=== PATIENT | female | born 1960 | race Two or more races ===

== ENCOUNTER 2016-12-17 13:11 | Inpatient (IN) | payer MEDICAID ==
[~2016-12-17] VITALS: Ht 167.6 cm; Wt 81.4 kg
[~2016-12-17 13:11] MED LIST: CARI-277; CLON0.1T PO; LORA-653 PO; NOR10T PO; OMEP20TA44 PO; ONDA4TAB5; OXCA600T3; SERT25TA84; TEMA15CA91 PO; [UNRECOGNIZED DRUG - CODE]
[2016-12-17] MEDS ORDERED: ONDANSETRON HCL 4 MG/2 ML VIAL IV ONE (13:45)
[2016-12-17] MEDS ORDERED: SODIUM CHLORIDE 0.9% 1,000 ML IV ONE (13:45)
[2016-12-17 14:18] LABS: Basophils # (auto) 0.1 uL; Eosinophils # (auto) 0.5 uL; Eosinophils % (auto) 7.5 % (0.0-7.0); Hematocrit 33.9 % (36.0-46.0); Hemoglobin 11.7 g/dL (12.2-16.2); Lymphocytes # (auto) 2.2 uL; Lymphocytes % (auto) 30.7 % (10.0-50.0); Mean Corpuscular Hemoglobin 32.8 pg (28.0-32.0); Mean Corpuscular Hgb Conc. 34.3 g/dL (32.0-36.0); Mean Corpuscular Volume 95.4 fL (80.0-100.0); Mean Platelet Volume 8.6 fL (7.4-10.4); Monocytes # (auto) 0.6 uL; Monocytes % (auto) 8.7 % (0.0-12.0); Neutrophils # (auto) 3.8 uL; Neutrophils % (auto) 52.1 % (37.0-80.0); Platelet Count (auto) 252 10^3/uL (140-450); Red Cell Distribution Width 14.7 % (11.6-16.0); White Blood Cell 7.3 10^3/uL (4.4-10.8)
[2016-12-17] MEDS ORDERED: ACETAMINOPHEN 500 MG TAB PO ONE (14:30)
[2016-12-17 14:32] LABS: INR 0.99 (0.9-1.15); Partial Thromboplastin Time 27.9 sec (22.64-33.71); Prothrombin Time 10.8 sec (9.37-12.3)
[2016-12-17 14:48] LABS: Albumin 3.6 g/dL (3.4-5.0); Alkaline Phosphatase 180 U/L (45-117); Anion Gap 9 (5-15); Aspartate Aminotransferase 13 U/L (15-37); BUN/Creatinine Ratio 23.7; Bilirubin, Total 0.2 mg/dL (0.2-1.0); Blood Urea Nitrogen 40 mg/dL (7-18); Calcium 7.9 mg/dL (8.5-10.1); Carbon Dioxide 22 mmol/L (21-32); Chloride 107 mmol/L (98-107); GFR African American 41 mL/min; GFR Non-African American 34 mL/min; Glucose 106 mg/dL (74-106); Magnesium 2.7 mg/dL (1.6-2.6); Sodium 138 mmol/L (136-145); Total Protein 6.5 g/dL (6.4-8.2)
[2016-12-17 15:21] LABS: Urine RBC None Seen /hpf (0 - 4)
[2016-12-17 15:27] LABS: Urine Bilirubin Negative (Negative); Urine Blood Negative /uL (Negative); Urine Color Yellow (Yellow); Urine Glucose Normal (Normal); Urine Hyaline Cast FEW /lpf (0 - 2); Urine Ketone Negative (Negative); Urine Nitrite Negative (Negative); Urine Squamous Epithelial Cell FEW /hpf (<5); Urine Urobilinogen Normal (Negative); Urine pH 5.5 (5.0-8.0)
[2016-12-17] MEDS: SODIUM CHLORIDE 0.9% 1,000 ML IV SCH (17:20)
[2016-12-17] MEDS ORDERED: PROMETHAZINE HCL 25 MG/ML 1ML IV PRN (17:30)
[2016-12-17] MEDS ORDERED: NITROGLYCERIN 0.4 MG SL TAB SL PRN (17:30)
[2016-12-17] MEDS ORDERED: LORazepam 2MG/ML-1ML VIAL IV PRN (17:30)
[2016-12-17] MEDS ORDERED: ACETAMINOPHEN 500 MG TAB PO PRN (17:30)
[2016-12-17] MEDS ORDERED: HYDROcodone-ACET 5/325MG TAB PO PRN (17:30)
[2016-12-17] MEDS ORDERED: TEMAZEPAM 15 MG CAP PO PRN (17:30)
[2016-12-17] MEDS: ENOXAPARIN SOD 40 MG/0.4 ML SYRINGE SC SCH (17:32)
[2016-12-17] MEDS ORDERED: ASPirin 81 mg TAB PO ONE (17:45)
[2016-12-17 17:47] LABS: Cholesterol 209 mg/dL (< 200); HDL Cholesterol 74 mg/dL (40-59); LDL Cholesterol 118 mg/dL (< 100); Triglycerides 254 mg/dL (< 150)
[2016-12-17] MEDS ORDERED: IPRATROPIUM BROM 0.5 MG/2.5ML INH SOL NEB ONE (18:00)
[2016-12-17] MEDS ORDERED: ALBUTEROL SULF 2.5 MG/0.5ML(0.5%) NEB SOLN NEB ONE (18:00)
[2016-12-17] MEDS ORDERED: DOCU100T15 PO (18:28)
[2016-12-17] MEDS ORDERED: QUET300T14 PO (18:28)
[2016-12-17] MEDS ORDERED: POTA10TA51 PO (18:28)
[2016-12-17] MEDS ORDERED: PHE100C PO (18:28)
[2016-12-17] MEDS ORDERED: DIPH50TA9 PO (18:28)
[2016-12-17] MEDS ORDERED: FURO40TA4 PO (18:28)
[2016-12-17] MEDS ORDERED: FAM20T PO (18:39)
[2016-12-17] MEDS ORDERED: TIZA4TAB9 PO (18:39)
[2016-12-17] MEDS ORDERED: PROP60CA8 PO (18:39)
[2016-12-17] MEDS ORDERED: LISI40TA PO (18:39)
[2016-12-17] MEDS ORDERED: LOR05T PO (18:39)
[2016-12-17] MEDS ORDERED: KEP500T PO (18:39)
[2016-12-17] MEDS ORDERED: HYDR-2652 PO (18:39)
[2016-12-17] MEDS ORDERED: GABA-339 PO (18:39)
[2016-12-17] MEDS ORDERED: HYDROcodone-ACET 10/325MG TAB PO SCH (19:15)
[2016-12-17] MEDS ORDERED: cloNIDine HCL 0.1 MG TAB PO PRN (19:15)
[2016-12-17] MEDS ORDERED: SERTRALINE HCL 50 MG TAB PO ONE (19:30)
[2016-12-17 20:30] VITALS: BP 114/70
[2016-12-17] MEDS: LEVETIRACETAM 500 MG TAB PO SCH (21:37)
[2016-12-17] MEDS: QUEtiapine FUMARATE 100 MG TAB PO SCH (21:37)
[2016-12-17] MEDS: GABAPENTIN 400 MG CAP PO SCH (21:38)
[2016-12-17] MEDS: ATORVASTATIN 20 MG TAB PO SCH (21:38)
[2016-12-17] MEDS: PHENYTOIN SODIUM 100 MG CAP PO SCH (21:38)
[2016-12-17] MEDS: HYDROcodone-ACET 10/325MG TAB PO PRN (21:39)
[2016-12-17] MEDS: Tizanidine Hydrochloride (Zanaflex) 4 MG PO SCH ×2 (21:40)
[2016-12-17 22:00] VITALS: BP 114/70
[2016-12-17] MEDS ORDERED: PATIENTS OWN MEDICATION (Gabapentin 1 TAB) PO SCH ×2 (22:00)
[2016-12-17] MEDS ORDERED: FAMOTIDINE 20 MG TAB PO SCH (22:00)
[2016-12-17] MEDS ORDERED: TIZANIDINE HYDROCHLORIDE PO SCH (22:00)
[2016-12-18] MEDS: MORPHINE SULF INJ 2 MG/ML SYRINGE 1ML IV PRN ×4 (03:19→22:57)
[2016-12-18 05:00] VITALS: BP 124/73
[2016-12-18] MEDS: Tizanidine Hydrochloride (Zanaflex) 4 MG PO SCH ×6 (06:00→21:46)
[2016-12-18 06:07] LABS: Potassium 4.6 mmol/L (3.5-5.1)
[2016-12-18 06:08] LABS: Albumin 3.1 g/dL (3.4-5.0); BUN/Creatinine Ratio 26.9; Bilirubin, Total 0.2 mg/dL (0.2-1.0); Calcium 7.8 mg/dL (8.5-10.1)
[2016-12-18] MEDS: GABAPENTIN 400 MG CAP PO SCH ×3 (06:11→21:45)
[2016-12-18] MEDS: SODIUM CHLORIDE 0.9% 1,000 ML IV SCH ×2 (06:30→18:20)
[2016-12-18] MEDS: HYDROcodone-ACET 10/325MG TAB PO PRN ×3 (06:37→19:48)
[2016-12-18 09:00] VITALS: BP 131/77
[2016-12-18] MEDS: LEVETIRACETAM 500 MG TAB PO SCH ×2 (09:18→21:46)
[2016-12-18] MEDS: ASPirin 81 mg TAB PO SCH (09:19)
[2016-12-18] MEDS: PHENYTOIN SODIUM 100 MG CAP PO SCH ×2 (09:19→21:45)
[2016-12-18] MEDS: SERTRALINE HCL 50 MG TAB PO SCH (09:19)
[2016-12-18] MEDS: FAMOTIDINE 20 MG TAB PO SCH (09:19)
[2016-12-18] MEDS: ENOXAPARIN SOD 40 MG/0.4 ML SYRINGE SC SCH (09:19)
[2016-12-18] MEDS: LACTULOSE 20Gm/30ML SOLN PO PRN ×2 (09:56→22:58)
[2016-12-18] MEDS ORDERED: OMEPRAZOLE 20 MG PO SCH (10:00)
[2016-12-18 13:33] LABS: Temperature: 24.1 C (20.0-25.0)
[2016-12-18 13:38] VITALS: BP 161/72
[2016-12-18] MEDS: LORazepam 0.5 MG TAB PO PRN (16:12)
[2016-12-18 17:05] VITALS: BP 155/85
[2016-12-18] MEDS ORDERED: PATIENTS OWN MEDICATION (Quetiapine Fumerate (Seroquel) 1 TAB) PO SCH (18:00)
[2016-12-18 20:00] VITALS: BP 137/75
[2016-12-18] MEDS: QUEtiapine FUMARATE 100 MG TAB PO SCH (21:46)
[2016-12-18] MEDS: ATORVASTATIN 20 MG TAB PO SCH (21:46)
[2016-12-18 22:00] VITALS: BP 137/75
[2016-12-19] VITALS (7 sets, daily range): BP systolic 117–160; BP diastolic 54–87
[2016-12-19] MEDS: MORPHINE SULF INJ 2 MG/ML SYRINGE 1ML IV PRN ×5 (04:00→23:35)
[2016-12-19] MEDS: Tizanidine Hydrochloride (Zanaflex) 4 MG PO SCH ×6 (05:54→21:02)
[2016-12-19] MEDS: GABAPENTIN 400 MG CAP PO SCH ×3 (05:54→20:15)
[2016-12-19] MEDS: HYDROcodone-ACET 10/325MG TAB PO PRN ×2 (06:05→20:16)
[2016-12-19] MEDS: SODIUM CHLORIDE 0.9% 1,000 ML IV SCH ×2 (06:50→19:20)
[2016-12-19] MEDS: FAMOTIDINE 20 MG TAB PO SCH (09:23)
[2016-12-19] MEDS: ASPirin 81 mg TAB PO SCH (09:24)
[2016-12-19] MEDS: SERTRALINE HCL 50 MG TAB PO SCH (09:24)
[2016-12-19] MEDS: LEVETIRACETAM 500 MG TAB PO SCH ×2 (09:24→20:16)
[2016-12-19] MEDS: PHENYTOIN SODIUM 100 MG CAP PO SCH ×2 (09:24→20:15)
[2016-12-19] MEDS: ENOXAPARIN SOD 40 MG/0.4 ML SYRINGE SC SCH (09:25)
[2016-12-19] MEDS: LORazepam 0.5 MG TAB PO PRN ×2 (13:37→23:35)
[2016-12-19] MEDS: QUEtiapine FUMARATE 100 MG TAB PO SCH (20:15)
[2016-12-19] MEDS: ATORVASTATIN 20 MG TAB PO SCH (20:17)
[2016-12-20 05:27] VITALS: BP 129/57
[2016-12-20] MEDS: GABAPENTIN 400 MG CAP PO SCH ×2 (05:39→14:00)
[2016-12-20] MEDS: Tizanidine Hydrochloride (Zanaflex) 4 MG PO SCH ×4 (05:39→13:37)
[2016-12-20] MEDS: MORPHINE SULF INJ 2 MG/ML SYRINGE 1ML IV PRN ×3 (05:40→16:18)
[2016-12-20] MEDS: SODIUM CHLORIDE 0.9% 1,000 ML IV SCH (07:44)
[2016-12-20 08:00] VITALS: BP 129/81
[2016-12-20 09:00] VITALS: BP 129/81
[2016-12-20] MEDS: ENOXAPARIN SOD 40 MG/0.4 ML SYRINGE SC SCH (09:24)
[2016-12-20] MEDS: ASPirin 81 mg TAB PO SCH (09:32)
[2016-12-20] MEDS: LEVETIRACETAM 500 MG TAB PO SCH (09:35)
[2016-12-20] MEDS: LORazepam 0.5 MG TAB PO PRN (09:36)
[2016-12-20] MEDS: FAMOTIDINE 20 MG TAB PO SCH (09:36)
[2016-12-20] MEDS: PHENYTOIN SODIUM 100 MG CAP PO SCH (09:36)
[2016-12-20] MEDS: SERTRALINE HCL 50 MG TAB PO SCH (09:36)
[2016-12-20] MEDS ORDERED: NITROGLYCERIN 0.4 MG SL TAB SL ONE (12:10)
[2016-12-20] MEDS ORDERED: METOPROLOL TARTRATE 1MG/1ML-5ML VIAL IV ONE (12:10)
[2016-12-20] MEDS ORDERED: IOHEXOL 350 MG/ML 100ML IJ ONE (12:52)
[2016-12-20 13:00] VITALS: BP 132/85
[2016-12-20 17:00] VITALS: BP 133/87
[2016-12-20 18:09] VITALS: BP 133/87
== END 2016-12-20 19:05 | disposition home or self-care (01) | DRG 812 ==
LOC: EDBD 13:11 → ER 13:11 → TELE 13:12 → TELE-WESTW 20:20
PROVIDERS: ADMIT Internal Medicine; ATTEND Internal Medicine Pulmonary Disease
DX: T42.6X1A Poisoning by other antiepileptic and sedative-hypnotic drugs, accidental (unintentional), initial encounter (principal); N17.9 Acute kidney failure, unspecified; N18.3 Chronic kidney disease, stage 3 (moderate); Y92.89 Other specified places as the place of occurrence of the external cause; I12.9 Hypertensive chronic kidney disease with stage 1 through stage 4 chronic kidney disease, or unspecified chronic kidney disease; I25.10 Atherosclerotic heart disease of native coronary artery without angina pectoris; Z86.73 Personal history of transient ischemic attack (TIA), and cerebral infarction without residual deficits; K21.9 Gastro-esophageal reflux disease without esophagitis; E03.9 Hypothyroidism, unspecified; E78.5 Hyperlipidemia, unspecified; F41.8 Other specified anxiety disorders; D50.9 Iron deficiency anemia, unspecified; F32.9 Major depressive disorder, single episode, unspecified; F41.9 Anxiety disorder, unspecified; G40.909 Epilepsy, unspecified, not intractable, without status epilepticus; G89.29 Other chronic pain; I25.2 Old myocardial infarction; M94.0 Chondrocostal junction syndrome [Tietze]; Z82.49 Family history of ischemic heart disease and other diseases of the circulatory system; Z83.3 Family history of diabetes mellitus; Z87.891 Personal history of nicotine dependence; Z90.49 Acquired absence of other specified parts of digestive tract; Z88.8 Allergy status to other drugs, medicaments and biological substances
CPT/HCPCS: 36415; 70450; 71010; 75574; 80053; 80061; 80185; 80307; 81001; 82550; 82607; 82746; 82962; 83735; 84443; 84484; 85025; 85610; 85652; 85730; 93005; 93306; 93886; 94640; 94761; 96361; 96374; J2405

== ENCOUNTER 2017-03-27 13:40 | Emergency (ER) | payer MEDICAID ==
[~2017-03-27] VITALS: Ht 177.8 cm; Wt 68.0 kg
[~2017-03-27 13:40] MED LIST changes: +DIPH50TA9 PO; +DOCU100T15 PO; +FAM20T PO; +FURO40TA4 PO; +GABA-339 PO; +HYDR-2652 PO; +KEP500T PO; +LISI40TA PO; +LOR05T PO; +PHE100C PO; +POTA10TA51 PO; +QUET300T14 PO; +TIZA4TAB9 PO
[2017-03-27] MEDS ORDERED: SODIUM CHLORIDE 0.9% 1,000 ML IV ONE (13:54)
[2017-03-27] MEDS ORDERED: LORazepam 2MG/ML-1ML VIAL IV ONE (14:00)
[2017-03-27 14:20] VITALS: BP 126/73
[2017-03-27 14:28] LABS: Basophils # (auto) 0.1 uL; CONDITION Y; Eosinophils # (auto) 0.4 uL; Eosinophils % (auto) 4.6 % (0.0-7.0); Hematocrit 38.4 % (36.0-46.0); Lymphocytes % (auto) 25.2 % (10.0-50.0); Mean Corpuscular Hemoglobin 32.7 pg (28.0-32.0); Mean Corpuscular Hgb Conc. 33.9 g/dL (32.0-36.0); Mean Corpuscular Volume 96.4 fL (80.0-100.0); Mean Platelet Volume 8.3 fL (7.4-10.4); Monocytes # (auto) 0.5 uL; Monocytes % (auto) 6.1 % (0.0-12.0); Neutrophils # (auto) 4.9 uL; Neutrophils % (auto) 63.1 % (37.0-80.0); Platelet Count (auto) 294 10^3/uL (140-450); Red Cell Distribution Width 14.4 % (11.6-16.0); White Blood Cell 7.8 10^3/uL (4.4-10.8)
[2017-03-27 14:50] LABS: Albumin 3.8 g/dL (3.4-5.0); Anion Gap 7 (5-15); Aspartate Aminotransferase 9 U/L (15-37); BUN/Creatinine Ratio 15.8; Blood Urea Nitrogen 12 mg/dL (7-18); Calcium 8.8 mg/dL (8.5-10.1); Carbon Dioxide 23 mmol/L (21-32); Chloride 109 mmol/L (98-107); GFR African American 102 mL/min; GFR Non-African American 84 mL/min; Glucose 87 mg/dL (74-106); Potassium 4.1 mmol/L (3.5-5.1); Sodium 139 mmol/L (136-145)
[2017-03-27 14:53] LABS: Alkaline Phosphatase 169 U/L (45-117); Bilirubin, Total 0.3 mg/dL (0.2-1.0)
[2017-03-27 15:09] LABS: Urine Bilirubin Negative (Negative); Urine Blood Negative /uL (Negative); Urine Color Colorless (Yellow); Urine Glucose Normal (Normal); Urine Ketone Negative (Negative); Urine Nitrite Negative (Negative); Urine RBC <1 /hpf (0 - 4); Urine Squamous Epithelial Cell FEW /hpf (<5); Urine Urobilinogen Normal (Negative)
== END 2017-03-27 16:53 | disposition home or self-care (01) ==
LOC: ER 13:40 → EDBD 13:40 → ER 16:53
DX: F41.1 Generalized anxiety disorder (principal); K21.9 Gastro-esophageal reflux disease without esophagitis; M25.511 Pain in right shoulder; I25.10 Atherosclerotic heart disease of native coronary artery without angina pectoris; I10 Essential (primary) hypertension; F32.9 Major depressive disorder, single episode, unspecified; R56.9 Unspecified convulsions; E78.5 Hyperlipidemia, unspecified; F17.210 Nicotine dependence, cigarettes, uncomplicated; Z88.6 Allergy status to analgesic agent
CPT/HCPCS: 36415; 72040; 73030; 80053; 81001; 84484; 85025; 93005; 96361; 96374; 99285; J2060; J7030

== ENCOUNTER 2017-04-12 18:47 | Observation (INO) | payer MEDICAID ==
[~2017-04-12] VITALS: Ht 167.6 cm; Wt 69.9 kg
[~2017-04-12 18:47] MED LIST changes: -HYDR-2652 PO; +HYDR50TA15 PO; -LOR05T PO; +LORA-654 PO
[2017-04-12 20:02] LABS: Acetaminophen < 2.0 ug/mL (10-30); Salicylate 4.2 mg/dL (2.8-20.0)
[2017-04-12] MEDS ORDERED: HYDROcodone-ACET 10/325MG TAB PO ONE (22:45)
[2017-04-13 05:31] VITALS: BP 116/76
[2017-04-13] MEDS ORDERED: HYDROcodone-ACET 5/325MG TAB PO ONE (05:45)
== END 2017-04-13 06:07 | disposition home or self-care (01) | DRG 776 ==
LOC: EDBD 18:47 → ER 18:57 → OVERFLOW 20:52 → ER 04-13 06:07
PROVIDERS: ADMIT Emergency Medicine; ATTEND Emergency Medicine
DX: F12.10 Cannabis abuse, uncomplicated (principal); F31.9 Bipolar disorder, unspecified; I10 Essential (primary) hypertension; F17.210 Nicotine dependence, cigarettes, uncomplicated; Z86.73 Personal history of transient ischemic attack (TIA), and cerebral infarction without residual deficits; K21.9 Gastro-esophageal reflux disease without esophagitis; I25.10 Atherosclerotic heart disease of native coronary artery without angina pectoris; F41.9 Anxiety disorder, unspecified
CPT/HCPCS: 36415; 80307; 80320; 80329; 99285; G0378

== ENCOUNTER → 2017-06-25 | Outpatient (CLI) | payer MEDICAID ==
[~2017-06-25] VITALS: Ht 167.6 cm; Wt 68.0 kg
[~2017-06-25] MED LIST changes: +ADENOSINE 57 MG in GIVE UN-DILUTED 0 ML IV ONE; +ADENOSINE 90 MG/30 ML INJ IV ONE
[2017-06-25 12:20] VITALS: BP 128/81
[2017-06-25 13:20] VITALS: BP 128/81
== END | disposition home or self-care (01) ==
LOC: Rad HDHVI 09:26
PROVIDERS: ATTEND Internal Medicine Cardiovascular Disease
DX: I10 Essential (primary) hypertension (principal); I20.9 Angina pectoris, unspecified; G40.89 Other seizures; I62.9 Nontraumatic intracranial hemorrhage, unspecified; F43.9 Reaction to severe stress, unspecified; F41.9 Anxiety disorder, unspecified; Z87.828 Personal history of other (healed) physical injury and trauma
CPT/HCPCS: 36415; 78452; 80185; 93005; 93306; 96374; 96375; A9500; G0463; J0153

== ENCOUNTER 2018-02-26 11:58 | Emergency (ER) | payer MEDICAID ==
[~2018-02-26] VITALS: Ht 167.6 cm; Wt 72.6 kg
[~2018-02-26 11:58] MED LIST changes: -ADENOSINE 57 MG in GIVE UN-DILUTED 0 ML IV ONE; -ADENOSINE 90 MG/30 ML INJ IV ONE
[2018-02-26] MEDS ORDERED: SODIUM CHLORIDE 0.9% 1,000 ML IV ONE (12:33)
[2018-02-26] MEDS ORDERED: MECLIZINE HCL 25 MG TAB PO ONE (12:45)
[2018-02-26 13:02] LABS: Urine Bacteria NONE SEEN /hpf (None Seen); Urine Blood Negative /uL (Negative); Urine Mucus FEW (None Seen); Urine Specific Gravity 1.015 (1.001-1.035); Urine WBC 1 /hpf (0 - 5)
[2018-02-26 13:15] LABS: Basophils # (auto) 0.1 uL; Basophils % (auto) 0.7 % (0.0-2.0); Eosinophils # (auto) 0.5 uL; Eosinophils % (auto) 6.2 % (0.0-7.0); Hematocrit 39.8 % (36.0-46.0); Hemoglobin 13.7 g/dL (12.2-16.2); Lymphocytes # (auto) 2.4 uL; Lymphocytes % (auto) 31.6 % (10.0-50.0); Mean Corpuscular Hemoglobin 32.9 pg (28.0-32.0); Mean Corpuscular Hgb Conc. 34.6 g/dL (32.0-36.0); Mean Corpuscular Volume 95.2 fL (80.0-100.0); Monocytes # (auto) 0.6 uL; Monocytes % (auto) 8.2 % (0.0-12.0); Neutrophils % (auto) 53.3 % (37.0-80.0); Platelet Count (auto) 286 10^3/uL (140-450); Red Blood Cells 4.18 10^6/uL (4.0-5.20); Red Cell Distribution Width 13.4 % (11.8-14.3); White Blood Cell 7.6 10^3/uL (4.4-10.8)
[2018-02-26 13:31] LABS: Albumin 4.2 g/dL (3.4-5.0); BUN/Creatinine Ratio 15.2; Calcium 8.7 mg/dL (8.5-10.1)
[2018-02-26 13:35] LABS: Bilirubin, Total 0.3 mg/dL (0.2-1.0); Total Protein 7.3 g/dL (6.4-8.2)
[2018-02-26] MEDS ORDERED: KETOROLAC TROMETH 30 MG/ML 1ML VIAL IV ONE (14:00)
[2018-02-26 15:18] VITALS: BP 114/66
== END 2018-02-26 15:38 | disposition home or self-care (01) ==
LOC: ER 11:58
DX: N39.0 Urinary tract infection, site not specified (principal); R42 Dizziness and giddiness; K21.9 Gastro-esophageal reflux disease without esophagitis; E78.5 Hyperlipidemia, unspecified; I10 Essential (primary) hypertension; I25.10 Atherosclerotic heart disease of native coronary artery without angina pectoris; E07.9 Disorder of thyroid, unspecified; F17.210 Nicotine dependence, cigarettes, uncomplicated; Z88.8 Allergy status to other drugs, medicaments and biological substances; Z90.49 Acquired absence of other specified parts of digestive tract; Z79.899 Other long term (current) drug therapy
CPT/HCPCS: 36415; 70450; 74176; 80053; 81001; 84484; 85025; 93005; 96361; 96374; 99285; J1885; J7030; J8597

== ENCOUNTER 2018-04-05 16:42 | Inpatient (IN) | payer MEDICAID ==
[~2018-04-05] VITALS: Ht 167.6 cm; Wt 66.7 kg
[2018-04-05 17:34] LABS: Basophils # (auto) 0.1 uL; Basophils % (auto) 0.7 % (0.0-2.0); Eosinophils # (auto) 0.6 uL; Eosinophils % (auto) 5.2 % (0.0-7.0); Hematocrit 36.1 % (36.0-46.0); Hemoglobin 12.4 g/dL (12.2-16.2); Lymphocytes # (auto) 1.2 uL; Lymphocytes % (auto) 11.6 % (10.0-50.0); Mean Corpuscular Hemoglobin 33.1 pg (28.0-32.0); Mean Corpuscular Hgb Conc. 34.4 g/dL (32.0-36.0); Mean Corpuscular Volume 96.1 fL (80.0-100.0); Monocytes # (auto) 0.5 uL; Monocytes % (auto) 4.6 % (0.0-12.0); Neutrophils # (auto) 8.2 uL; Neutrophils % (auto) 77.9 % (37.0-80.0); Platelet Count (auto) 305 10^3/uL (140-450); Red Blood Cells 3.76 10^6/uL (4.0-5.20); Red Cell Distribution Width 14.1 % (11.8-14.3); White Blood Cell 10.5 10^3/uL (4.4-10.8)
[2018-04-05 17:46] LABS: Alanine Aminotransferase 37 U/L (13-56); Albumin 3.9 g/dL (3.4-5.0); Alkaline Phosphatase 183 U/L (45-117); Amylase 69 U/L (25-115); Anion Gap 6 (5-15); Aspartate Aminotransferase 12 U/L (15-37); BUN/Creatinine Ratio 19.4; Bilirubin, Total 0.2 mg/dL (0.2-1.0); Blood Urea Nitrogen 27 mg/dL (7-18); Calcium 8.2 mg/dL (8.5-10.1); Carbon Dioxide 22 mmol/L (21-32); Chloride 109 mmol/L (98-107); GFR African American 51 mL/min; GFR Non-African American 42 mL/min; Glucose 100 mg/dL (74-106); Lipase 85 U/L (73-393); Magnesium 2.6 mg/dL (1.6-2.6); Potassium 4.6 mmol/L (3.5-5.1); Sodium 137 mmol/L (136-145); Total Protein 7.2 g/dL (6.4-8.2)
[2018-04-05 19:43] LABS: Urine Bacteria NONE SEEN /hpf (None Seen); Urine Blood Negative /uL (Negative); Urine Mucus FEW (None Seen); Urine Specific Gravity 1.013 (1.001-1.035); Urine WBC 2 /hpf (0 - 5)
[2018-04-05 19:52] LABS: Alcohol, Urine < 3.0 mg/dL (0-5); Amphetamine Screen, Urine NEGATIVE (NEGATIVE); Barbiturate Scree,Urine NEGATIVE (NEGATIVE); Benzodiazephine Screen, Urine NEGATIVE (NEGATIVE); Cannabinoid Screen, Urine NEGATIVE (NEGATIVE); Cocaine Screen, Urine NEGATIVE (NEGATIVE); Opiate Scree,Urine NEGATIVE (NEGATIVE); Phencyclidine Screen, Urine NEGATIVE (NEGATIVE)
[2018-04-05] MEDS ORDERED: PANTOPRAZOLE 40 MG/10 ML VIAL IV ONE (21:45)
[2018-04-05] MEDS ORDERED: MORPHINE SULF INJ 2 MG/ML SYRINGE 1ML IV ONE (21:45)
[2018-04-05] MEDS ORDERED: ONDANSETRON HCL 4 MG/2 ML VIAL IV ONE (21:45)
[2018-04-05] MEDS ORDERED: SODIUM CHLORIDE 0.9% 500 ML IV ONE (22:30)
[2018-04-05] MEDS: SODIUM CHLORIDE 0.9% 1,000 ML IV SCH (22:30)
[2018-04-06] MEDS: hydrALAZINE HCL 25 MG TAB PO SCH ×3 (01:06→21:50)
[2018-04-06] MEDS: ONDANSETRON HCL 4 MG/2 ML VIAL IV PRN ×3 (01:06→16:44)
[2018-04-06] MEDS: TEMAZEPAM 15 MG CAP PO PRN ×2 (01:06→21:56)
[2018-04-06] MEDS: HYDROcodone-ACET 5/325MG TAB PO PRN ×3 (01:07→09:22)
[2018-04-06] MEDS: DOCUSATE SOD 100 MG CAP PO PRN (01:07)
[2018-04-06] MEDS: PHENYTOIN SODIUM 100 MG CAP PO SCH ×3 (01:08→21:50)
[2018-04-06] MEDS: ACETAMINOPHEN 325 MG TAB PO PRN (01:08)
[2018-04-06] MEDS: SODIUM CHLORIDE 0.9% 1,000 ML IV SCH (04:49)
[2018-04-06 05:00] VITALS: BP 119/63
[2018-04-06 05:57] LABS: Basophils # (auto) 0 uL; Basophils % (auto) 0.7 % (0.0-2.0); Eosinophils # (auto) 0.3 uL; Eosinophils % (auto) 5.1 % (0.0-7.0); Hematocrit 36.4 % (36.0-46.0); Hemoglobin 11.9 g/dL (12.2-16.2); Lymphocytes # (auto) 1.8 uL; Lymphocytes % (auto) 28.5 % (10.0-50.0); Mean Corpuscular Hemoglobin 32.5 pg (28.0-32.0); Mean Corpuscular Hgb Conc. 32.8 g/dL (32.0-36.0); Mean Corpuscular Volume 99.1 fL (80.0-100.0); Monocytes # (auto) 0.5 uL; Neutrophils # (auto) 3.7 uL; Neutrophils % (auto) 57.7 % (37.0-80.0); Platelet Count (auto) 281 10^3/uL (140-450); Red Blood Cells 3.67 10^6/uL (4.0-5.20); Red Cell Distribution Width 14.9 % (11.8-14.3); White Blood Cell 6.4 10^3/uL (4.4-10.8)
[2018-04-06] MEDS: MORPHINE SULF INJ 2 MG/ML SYRINGE 1ML IV PRN ×3 (06:16→20:14)
[2018-04-06 06:32] LABS: Albumin 3.4 g/dL (3.4-5.0); BUN/Creatinine Ratio 19.6; Bilirubin, Total 0.3 mg/dL (0.2-1.0); Calcium 7.9 mg/dL (8.5-10.1); Potassium 4.3 mmol/L (3.5-5.1); Total Protein 6.3 g/dL (6.4-8.2)
[2018-04-06 08:51] VITALS: BP 97/75
[2018-04-06] MEDS ORDERED: cefTRIAXone 1GM/10ml IVPUSH 10 ML IV SCH (09:00)
[2018-04-06] MEDS: SERTRALINE HCL 50 MG TAB PO SCH (09:19)
[2018-04-06] MEDS: LEVETIRACETAM 500 MG TAB PO SCH ×2 (09:19→21:50)
[2018-04-06] MEDS: lamoTRIgine 100 MG TAB PO SCH ×2 (09:20→21:50)
[2018-04-06] MEDS: LISINOPRIL 20 MG TAB PO SCH (09:23)
[2018-04-06] MEDS: FUROSEMIDE 40 MG TAB PO SCH (09:23)
[2018-04-06] MEDS ORDERED: PANTOPRAZOLE 40 MG/10 ML VIAL IV SCH (10:00)
[2018-04-06 10:39] LABS: Albumin 3.3 g/dL (3.4-5.0); BUN/Creatinine Ratio 18.3; Bilirubin, Total 0.4 mg/dL (0.2-1.0); Calcium 7.9 mg/dL (8.5-10.1); Potassium 4.6 mmol/L (3.5-5.1); Total Protein 6.5 g/dL (6.4-8.2)
[2018-04-06 12:30] VITALS: BP 130/74
[2018-04-06 16:28] VITALS: BP 134/70
[2018-04-06] MEDS: LACTULOSE 20Gm/30ML SOLN PO PRN (16:48)
[2018-04-06] MEDS: LORazepam 0.5 MG TAB PO PRN (17:42)
[2018-04-06] MEDS: PANTOPRAZOLE 40 MG TAB PO SCH (21:50)
[2018-04-06 22:12] VITALS: BP 125/73
[2018-04-07] MEDS: SODIUM CHLORIDE 0.9% 1,000 ML IV SCH ×2 (01:10→10:01)
[2018-04-07] MEDS: MORPHINE SULF INJ 2 MG/ML SYRINGE 1ML IV PRN ×6 (01:28→22:11)
[2018-04-07] MEDS: ONDANSETRON HCL 4 MG/2 ML VIAL IV PRN ×2 (04:59→19:40)
[2018-04-07 05:09] VITALS: BP 115/66
[2018-04-07 05:24] LABS: Basophils # (auto) 0.1 uL; Eosinophils # (auto) 0.4 uL; Eosinophils % (auto) 8.3 % (0.0-7.0); Hematocrit 36.9 % (36.0-46.0); Hemoglobin 12.4 g/dL (12.2-16.2); Lymphocytes # (auto) 1.5 uL; Lymphocytes % (auto) 27.1 % (10.0-50.0); Mean Corpuscular Hemoglobin 32.2 pg (28.0-32.0); Mean Corpuscular Hgb Conc. 33.7 g/dL (32.0-36.0); Mean Corpuscular Volume 95.8 fL (80.0-100.0); Monocytes # (auto) 0.4 uL; Monocytes % (auto) 8.2 % (0.0-12.0); Neutrophils % (auto) 55.4 % (37.0-80.0); Nucleated Red Blood Cells % 0.1 %; Platelet Count (auto) 286 10^3/uL (140-450); Red Blood Cells 3.85 10^6/uL (4.0-5.20); Red Cell Distribution Width 14.1 % (11.8-14.3); White Blood Cell 5.4 10^3/uL (4.4-10.8)
[2018-04-07] MEDS: PHENYTOIN SODIUM 100 MG CAP PO SCH (05:33)
[2018-04-07 05:36] LABS: Albumin 3.4 g/dL (3.4-5.0); BUN/Creatinine Ratio 12.9; Bilirubin, Total 0.7 mg/dL (0.2-1.0); Calcium 8.4 mg/dL (8.5-10.1); Total Protein 6.6 g/dL (6.4-8.2)
[2018-04-07] MEDS: hydrALAZINE HCL 25 MG TAB PO SCH ×3 (05:40→22:08)
[2018-04-07 06:08] LABS: % Iron Saturation 57.7 % (15-50)
[2018-04-07] MEDS: HYDROcodone-ACET 5/325MG TAB PO PRN (06:34)
[2018-04-07] MEDS: DOCUSATE SOD 100 MG CAP PO PRN (07:59)
[2018-04-07] MEDS: LACTULOSE 20Gm/30ML SOLN PO PRN (07:59)
[2018-04-07 09:03] VITALS: BP 118/78
[2018-04-07] MEDS: lamoTRIgine 100 MG TAB PO SCH ×2 (09:29→22:09)
[2018-04-07] MEDS: LEVETIRACETAM 500 MG TAB PO SCH ×2 (09:29→22:09)
[2018-04-07] MEDS: SERTRALINE HCL 50 MG TAB PO SCH (09:29)
[2018-04-07] MEDS: PANTOPRAZOLE 40 MG TAB PO SCH ×2 (09:29→22:10)
[2018-04-07] MEDS: FUROSEMIDE 40 MG TAB PO SCH (09:30)
[2018-04-07] MEDS: LISINOPRIL 20 MG TAB PO SCH (09:30)
[2018-04-07] MEDS ORDERED: FAM20T PO (09:38)
[2018-04-07] MEDS ORDERED: LORA2TAB10 PO (09:39)
[2018-04-07] MEDS: ACETAMINOPHEN 325 MG TAB PO PRN (11:03)
[2018-04-07] MEDS: LORazepam 0.5 MG TAB PO PRN (11:03)
[2018-04-07 12:56] VITALS: BP 128/73
[2018-04-07 14:04] LABS: INR 0.93 (0.9-1.15)
[2018-04-07 16:45] VITALS: BP 117/50
[2018-04-07 22:00] VITALS: BP 127/81
[2018-04-07] MEDS: QUEtiapine FUMARATE 100 MG TAB PO SCH (22:10)
[2018-04-08] MEDS: TEMAZEPAM 15 MG CAP PO PRN ×2 (00:07→21:46)
[2018-04-08] MEDS: ONDANSETRON HCL 4 MG/2 ML VIAL IV PRN ×4 (00:07→17:54)
[2018-04-08] MEDS: SODIUM CHLORIDE 0.9% 1,000 ML IV SCH ×2 (00:45→16:18)
[2018-04-08] MEDS: MORPHINE SULF INJ 2 MG/ML SYRINGE 1ML IV PRN ×5 (02:58→20:08)
[2018-04-08 04:53] VITALS: BP 110/70
[2018-04-08] MEDS: hydrALAZINE HCL 25 MG TAB PO SCH ×3 (05:42→21:41)
[2018-04-08 06:45] LABS: Albumin 3.8 g/dL (3.4-5.0); Bilirubin, Direct 0.3 mg/dL (0-0.2); Bilirubin, Total 0.8 mg/dL (0.2-1.0); Total Protein 6.8 g/dL (6.4-8.2)
[2018-04-08] MEDS: ACETAMINOPHEN 325 MG TAB PO PRN ×2 (06:54→18:30)
[2018-04-08 08:00] VITALS: BP 117/58
[2018-04-08] MEDS: lamoTRIgine 100 MG TAB PO SCH ×2 (09:18→21:40)
[2018-04-08] MEDS: LORazepam 0.5 MG TAB PO PRN ×2 (09:20→15:28)
[2018-04-08] MEDS: SERTRALINE HCL 50 MG TAB PO SCH (09:21)
[2018-04-08] MEDS: LEVETIRACETAM 500 MG TAB PO SCH ×2 (09:22→21:40)
[2018-04-08] MEDS: PANTOPRAZOLE 40 MG TAB PO SCH ×2 (09:22→21:48)
[2018-04-08] MEDS: LISINOPRIL 20 MG TAB PO SCH (09:22)
[2018-04-08] MEDS: FUROSEMIDE 40 MG TAB PO SCH (09:28)
[2018-04-08 12:52] LABS: Hepatitis A Ab IgM Negative; Hepatitis B Core IgM Negative; Hepatitis B Surface Antigen Negative (Negative)
[2018-04-08 12:53] LABS: Hepatitis C Antibody Negative (Negative)
[2018-04-08 13:45] VITALS: BP 109/57
[2018-04-08 17:00] VITALS: BP 111/57
[2018-04-08] MEDS: QUEtiapine FUMARATE 100 MG TAB PO SCH (21:41)
[2018-04-08 22:00] VITALS: BP 122/82
[2018-04-09] MEDS: MORPHINE SULF INJ 2 MG/ML SYRINGE 1ML IV PRN ×5 (01:44→21:26)
[2018-04-09] MEDS: ONDANSETRON HCL 4 MG/2 ML VIAL IV PRN ×4 (01:49→21:26)
[2018-04-09] MEDS: LORazepam 0.5 MG TAB PO PRN ×3 (03:45→23:29)
[2018-04-09] MEDS: SODIUM CHLORIDE 0.9% 1,000 ML IV SCH ×2 (04:55→21:06)
[2018-04-09 05:36] VITALS: BP_SYST 121; BP_SYST 150; BP_DIAS 77; BP_DIAS 80
[2018-04-09] MEDS: hydrALAZINE HCL 25 MG TAB PO SCH ×3 (06:42→21:25)
[2018-04-09 08:00] VITALS: BP 120/71
[2018-04-09 08:45] LABS: Albumin 3.5 g/dL (3.4-5.0); Bilirubin, Direct 0.2 mg/dL (0-0.2); Bilirubin, Total 0.6 mg/dL (0.2-1.0); Total Protein 6.6 g/dL (6.4-8.2)
[2018-04-09] MEDS: ACETAMINOPHEN 325 MG TAB PO PRN (08:47)
[2018-04-09] MEDS: FUROSEMIDE 40 MG TAB PO SCH (10:15)
[2018-04-09] MEDS: lamoTRIgine 100 MG TAB PO SCH ×2 (10:15→21:07)
[2018-04-09] MEDS: LEVETIRACETAM 500 MG TAB PO SCH ×2 (10:15→21:06)
[2018-04-09] MEDS: LISINOPRIL 20 MG TAB PO SCH (10:17)
[2018-04-09] MEDS: PANTOPRAZOLE 40 MG TAB PO SCH (10:17)
[2018-04-09] MEDS: SERTRALINE HCL 50 MG TAB PO SCH (10:17)
[2018-04-09] MEDS ORDERED: LORATADINE 10 MG TAB PO ONE (11:15)
[2018-04-09] MEDS: HYDROcodone-ACET 5/325MG TAB PO PRN (11:31)
[2018-04-09] MEDS ORDERED: KETO0.025 EACHEYE (12:14)
[2018-04-09] MEDS ORDERED: FLUT1SPR21 (12:14)
[2018-04-09] MEDS ORDERED: LORA-154 PO (12:14)
[2018-04-09 12:39] VITALS: BP 145/74
[2018-04-09 16:27] VITALS: BP 113/78
[2018-04-09] MEDS: QUEtiapine FUMARATE 100 MG TAB PO SCH (21:07)
[2018-04-09] MEDS: FAMOTIDINE 20 MG TAB PO SCH (21:07)
[2018-04-09] MEDS: KETOTIFEN EACHEYE SCH (21:25)
[2018-04-09] MEDS: FLUTICASONE PROP NASAL SPR 0.05 % (50MCG) 16GM EACHNOSTRI SCH (21:25)
[2018-04-09 22:00] VITALS: BP 122/91
[2018-04-09] MEDS ORDERED: PATIENTS OWN MEDICATION PO SCH (22:00)
[2018-04-10] MEDS: LACTULOSE 20Gm/30ML SOLN PO PRN (01:51)
[2018-04-10] MEDS: TEMAZEPAM 15 MG CAP PO PRN (01:51)
[2018-04-10 05:00] VITALS: BP 114/66
[2018-04-10] MEDS: hydrALAZINE HCL 25 MG TAB PO SCH ×3 (05:40→20:20)
[2018-04-10] MEDS: HYDROcodone-ACET 5/325MG TAB PO PRN ×3 (06:14→15:52)
[2018-04-10 07:28] LABS: Albumin 3.5 g/dL (3.4-5.0); BUN/Creatinine Ratio 11.1; Bilirubin, Total 0.5 mg/dL (0.2-1.0); Calcium 8.7 mg/dL (8.5-10.1); Potassium 3.3 mmol/L (3.5-5.1); Total Protein 6.7 g/dL (6.4-8.2)
[2018-04-10] MEDS: LORazepam 0.5 MG TAB PO PRN ×2 (08:33→15:01)
[2018-04-10 08:34] VITALS: BP 117/76
[2018-04-10] MEDS: FLUTICASONE PROP NASAL SPR 0.05 % (50MCG) 16GM EACHNOSTRI SCH ×2 (10:25→20:20)
[2018-04-10] MEDS: KETOTIFEN EACHEYE SCH ×2 (10:25→23:19)
[2018-04-10] MEDS: LORATADINE 10 MG TAB PO SCH (10:26)
[2018-04-10] MEDS: FAMOTIDINE 20 MG TAB PO SCH ×2 (10:26→20:19)
[2018-04-10] MEDS: LISINOPRIL 20 MG TAB PO SCH (10:26)
[2018-04-10] MEDS: SERTRALINE HCL 50 MG TAB PO SCH (10:26)
[2018-04-10] MEDS: lamoTRIgine 100 MG TAB PO SCH ×2 (10:26→20:19)
[2018-04-10] MEDS: LEVETIRACETAM 500 MG TAB PO SCH ×2 (10:26→20:19)
[2018-04-10] MEDS: FUROSEMIDE 40 MG TAB PO SCH (10:27)
[2018-04-10] MEDS ORDERED: POTASSIUM CHL 20 Meq TABLET PO ONE (11:00)
[2018-04-10] MEDS: SODIUM CHLORIDE 0.9% 1,000 ML IV SCH (12:06)
[2018-04-10 13:00] VITALS: BP 111/74
[2018-04-10 17:00] VITALS: BP 120/79
[2018-04-10] MEDS: QUEtiapine FUMARATE 100 MG TAB PO SCH (20:19)
[2018-04-10] MEDS: MORPHINE SULF INJ 2 MG/ML SYRINGE 1ML IV PRN (20:31)
[2018-04-10 22:00] VITALS: BP 129/80
[2018-04-10] MEDS: ACETAMINOPHEN 325 MG TAB PO PRN (23:21)
[2018-04-11] MEDS: LORazepam 0.5 MG TAB PO PRN ×3 (03:48→20:06)
[2018-04-11 04:41] VITALS: BP 137/91
[2018-04-11] MEDS: MORPHINE SULF INJ 2 MG/ML SYRINGE 1ML IV PRN ×3 (04:55→20:06)
[2018-04-11] MEDS: hydrALAZINE HCL 25 MG TAB PO SCH ×3 (05:46→22:34)
[2018-04-11] MEDS: SODIUM CHLORIDE 0.9% 1,000 ML IV SCH (06:20)
[2018-04-11 08:04] LABS: Albumin 3.5 g/dL (3.4-5.0); Bilirubin, Direct 0.1 mg/dL (0-0.2); Bilirubin, Total 0.4 mg/dL (0.2-1.0); Potassium 3.7 mmol/L (3.5-5.1); Total Protein 6.5 g/dL (6.4-8.2)
[2018-04-11 09:00] VITALS: BP 125/76
[2018-04-11] MEDS: KETOTIFEN EACHEYE SCH ×2 (09:26→22:34)
[2018-04-11] MEDS: SERTRALINE HCL 50 MG TAB PO SCH (09:27)
[2018-04-11] MEDS: lamoTRIgine 100 MG TAB PO SCH ×2 (09:27→22:32)
[2018-04-11] MEDS: LORATADINE 10 MG TAB PO SCH (09:29)
[2018-04-11] MEDS: FUROSEMIDE 40 MG TAB PO SCH (09:29)
[2018-04-11] MEDS: LISINOPRIL 20 MG TAB PO SCH (09:29)
[2018-04-11] MEDS: LEVETIRACETAM 500 MG TAB PO SCH ×2 (09:29→22:34)
[2018-04-11] MEDS: FLUTICASONE PROP NASAL SPR 0.05 % (50MCG) 16GM EACHNOSTRI SCH ×2 (09:30→22:34)
[2018-04-11] MEDS: FAMOTIDINE 20 MG TAB PO SCH ×2 (09:30→22:33)
[2018-04-11 10:30] LABS: Basophils # (auto) 0.1 uL; Basophils % (auto) 1.6 % (0.0-2.0); Eosinophils # (auto) 0.7 uL; Eosinophils % (auto) 10.7 % (0.0-7.0); Hematocrit 40.7 % (36.0-46.0); Hemoglobin 13.3 g/dL (12.2-16.2); Lymphocytes # (auto) 1.8 uL; Lymphocytes % (auto) 27.8 % (10.0-50.0); Mean Corpuscular Hemoglobin 31.9 pg (28.0-32.0); Mean Corpuscular Hgb Conc. 32.7 g/dL (32.0-36.0); Mean Corpuscular Volume 97.6 fL (80.0-100.0); Monocytes # (auto) 0.5 uL; Monocytes % (auto) 8.4 % (0.0-12.0); Neutrophils # (auto) 3.3 uL; Neutrophils % (auto) 51.5 % (37.0-80.0); Nucleated Red Blood Cells % 0.1 %; Platelet Count (auto) 241 10^3/uL (140-450); Red Blood Cells 4.17 10^6/uL (4.0-5.20); White Blood Cell 6.5 10^3/uL (4.4-10.8)
[2018-04-11 10:50] LABS: INR 0.94 (0.9-1.15); Partial Thromboplastin Time 26.6 sec (23.78-33.04); Prothrombin Time 10.1 sec (9.27-12.13)
[2018-04-11] MEDS ORDERED: IOHEXOL 300 MG/ML 100ML BOTTLE IJ ONE (12:57)
[2018-04-11 13:00] VITALS: BP 115/81
[2018-04-11] MEDS ORDERED: MORPHINE SULFATE 4 MG/ML SYR/VIAL IV PRN (16:00)
[2018-04-11] MEDS ORDERED: LABETALOL HCL 5 MG/ML 4ML SYRINGE IV PRN (16:00)
[2018-04-11] MEDS ORDERED: MORPHINE SULFATE 4 MG/ML SYR/VIAL IV ONE (16:00)
[2018-04-11] MEDS ORDERED: KETOROLAC TROMETH 30 MG/ML 1ML VIAL IV ONE (16:00)
[2018-04-11] MEDS ORDERED: ePHEDrine SULFATE 50 MG/ML AMP IV PRN (16:00)
[2018-04-11] MEDS ORDERED: MIDAZOLAM HCL 1MG/1ML-2 ML VIAL IV PRN (16:00)
[2018-04-11] MEDS ORDERED: HYDROmorphone HCL 2 MG/ML VL IV PRN (16:00)
[2018-04-11] MEDS ORDERED: ONDANSETRON HCL 4 MG/2 ML VIAL IV ONE (16:00)
[2018-04-11] MEDS ORDERED: PHENYLEPHRINE HCL 10 MG/ML VL IV ONE (16:04)
[2018-04-11] MEDS ORDERED: MEPERIDINE HCL (50 MG/ML) 1 ML VIAL ONE (16:12)
[2018-04-11] MEDS ORDERED: fentaNYL CITRATE 100 MCG/2 ML VL ONE (16:12)
[2018-04-11] MEDS ORDERED: MIDAZOLAM HCL 1MG/1ML-2 ML VIAL ONE (16:12)
[2018-04-11] MEDS ORDERED: DEXAMETHASONE SOD PHOS 10MG/1ML VIAL INJ ONE (16:12)
[2018-04-11] MEDS ORDERED: PROPOFOL 10 MG/ML 20 ML IV ONE (16:12)
[2018-04-11 18:24] VITALS: BP 120/70
[2018-04-11] MEDS: ONDANSETRON HCL 4 MG/2 ML VIAL IV PRN (20:06)
[2018-04-11 21:47] VITALS: BP 128/76
[2018-04-11] MEDS: QUEtiapine FUMARATE 100 MG TAB PO SCH (22:33)
[2018-04-11] MEDS: TEMAZEPAM 15 MG CAP PO PRN (22:35)
[2018-04-12] MEDS: MORPHINE SULF INJ 2 MG/ML SYRINGE 1ML IV PRN ×4 (00:12→15:27)
[2018-04-12] MEDS: ONDANSETRON HCL 4 MG/2 ML VIAL IV PRN (00:13)
[2018-04-12] MEDS: SODIUM CHLORIDE 0.9% 1,000 ML IV SCH (03:00)
[2018-04-12 05:00] VITALS: BP 115/73
[2018-04-12] MEDS: hydrALAZINE HCL 25 MG TAB PO SCH ×3 (05:46→20:41)
[2018-04-12 06:42] LABS: Basophils # (auto) 0.1 uL; Basophils % (auto) 0.7 % (0.0-2.0); Eosinophils # (auto) 0.4 uL; Eosinophils % (auto) 4.4 % (0.0-7.0); Hematocrit 37.5 % (36.0-46.0); Hemoglobin 12.9 g/dL (12.2-16.2); Lymphocytes # (auto) 2.1 uL; Lymphocytes % (auto) 24.4 % (10.0-50.0); Mean Corpuscular Hemoglobin 32.7 pg (28.0-32.0); Mean Corpuscular Hgb Conc. 34.3 g/dL (32.0-36.0); Mean Corpuscular Volume 95.3 fL (80.0-100.0); Monocytes # (auto) 0.8 uL; Monocytes % (auto) 8.6 % (0.0-12.0); Neutrophils # (auto) 5.4 uL; Neutrophils % (auto) 61.9 % (37.0-80.0); Nucleated Red Blood Cells % 0.1 %; Platelet Count (auto) 262 10^3/uL (140-450); Red Blood Cells 3.94 10^6/uL (4.0-5.20); Red Cell Distribution Width 13.4 % (11.8-14.3); White Blood Cell 8.7 10^3/uL (4.4-10.8)
[2018-04-12 06:53] LABS: Albumin 3.6 g/dL (3.4-5.0); Bilirubin, Total 0.4 mg/dL (0.2-1.0); Calcium 8.9 mg/dL (8.5-10.1); Potassium 3.5 mmol/L (3.5-5.1); Total Protein 6.8 g/dL (6.4-8.2)
[2018-04-12 09:22] VITALS: BP 105/69
[2018-04-12] MEDS: KETOTIFEN EACHEYE SCH ×2 (10:00→20:34)
[2018-04-12] MEDS: FAMOTIDINE 20 MG TAB PO SCH ×2 (10:57→20:32)
[2018-04-12] MEDS: LORATADINE 10 MG TAB PO SCH (10:57)
[2018-04-12] MEDS: LISINOPRIL 20 MG TAB PO SCH (10:57)
[2018-04-12] MEDS: SERTRALINE HCL 50 MG TAB PO SCH (10:58)
[2018-04-12] MEDS: LEVETIRACETAM 500 MG TAB PO SCH ×2 (10:58→20:32)
[2018-04-12] MEDS: lamoTRIgine 100 MG TAB PO SCH ×2 (10:58→20:32)
[2018-04-12] MEDS: FUROSEMIDE 40 MG TAB PO SCH (10:58)
[2018-04-12] MEDS: FLUTICASONE PROP NASAL SPR 0.05 % (50MCG) 16GM EACHNOSTRI SCH ×2 (10:59→20:33)
[2018-04-12] MEDS: LORazepam 0.5 MG TAB PO PRN ×2 (12:16→20:41)
[2018-04-12 13:00] VITALS: BP 116/80
[2018-04-12 16:30] VITALS: BP 103/73
[2018-04-12] MEDS: MORPHINE SULFATE 4 MG/ML SYR/VIAL IV PRN (19:55)
[2018-04-12] MEDS: QUEtiapine FUMARATE 100 MG TAB PO SCH (20:32)
[2018-04-12 21:57] VITALS: BP 97/60
[2018-04-13] MEDS: MORPHINE SULFATE 4 MG/ML SYR/VIAL IV PRN ×7 (00:52→22:08)
[2018-04-13] MEDS: LORazepam 0.5 MG TAB PO PRN ×3 (04:39→20:52)
[2018-04-13 04:52] VITALS: BP 104/60
[2018-04-13] MEDS: hydrALAZINE HCL 25 MG TAB PO SCH ×3 (05:23→22:07)
[2018-04-13 06:15] LABS: Albumin 3.5 g/dL (3.4-5.0); Bilirubin, Direct 0.1 mg/dL (0-0.2); Bilirubin, Total 0.2 mg/dL (0.2-1.0); Total Protein 6.8 g/dL (6.4-8.2)
[2018-04-13 09:00] VITALS: BP 119/58
[2018-04-13] MEDS: KETOTIFEN EACHEYE SCH ×2 (09:31→22:08)
[2018-04-13] MEDS: LISINOPRIL 20 MG TAB PO SCH (09:32)
[2018-04-13] MEDS: LORATADINE 10 MG TAB PO SCH (09:32)
[2018-04-13] MEDS: lamoTRIgine 100 MG TAB PO SCH ×2 (09:32→22:06)
[2018-04-13] MEDS: ONDANSETRON HCL 4 MG/2 ML VIAL IV PRN ×4 (09:32→22:07)
[2018-04-13] MEDS: FLUTICASONE PROP NASAL SPR 0.05 % (50MCG) 16GM EACHNOSTRI SCH ×2 (09:32→22:08)
[2018-04-13] MEDS: LEVETIRACETAM 500 MG TAB PO SCH ×2 (09:32→22:06)
[2018-04-13] MEDS: FAMOTIDINE 20 MG TAB PO SCH ×2 (09:33→20:56)
[2018-04-13] MEDS: FUROSEMIDE 40 MG TAB PO SCH (09:33)
[2018-04-13] MEDS: SERTRALINE HCL 50 MG TAB PO SCH (09:33)
[2018-04-13 13:00] VITALS: BP 105/63
[2018-04-13 17:37] VITALS: BP 106/67
[2018-04-13 21:35] VITALS: BP 120/78
[2018-04-13] MEDS: QUEtiapine FUMARATE 100 MG TAB PO SCH (22:07)
[2018-04-14] MEDS: ONDANSETRON HCL 4 MG/2 ML VIAL IV PRN ×4 (03:35→18:26)
[2018-04-14] MEDS: MORPHINE SULFATE 4 MG/ML SYR/VIAL IV PRN ×4 (03:36→18:26)
[2018-04-14] MEDS: hydrALAZINE HCL 25 MG TAB PO SCH ×2 (05:26→13:59)
[2018-04-14 05:33] VITALS: BP 92/56
[2018-04-14 08:00] VITALS: BP 99/64
[2018-04-14 09:00] VITALS: BP 99/64
[2018-04-14] MEDS: FLUTICASONE PROP NASAL SPR 0.05 % (50MCG) 16GM EACHNOSTRI SCH (09:26)
[2018-04-14] MEDS: LORATADINE 10 MG TAB PO SCH (09:27)
[2018-04-14] MEDS: KETOTIFEN EACHEYE SCH (09:27)
[2018-04-14] MEDS: LEVETIRACETAM 500 MG TAB PO SCH (09:28)
[2018-04-14] MEDS: LORazepam 0.5 MG TAB PO PRN ×2 (09:28→20:00)
[2018-04-14] MEDS: FAMOTIDINE 20 MG TAB PO SCH (09:28)
[2018-04-14] MEDS: FUROSEMIDE 40 MG TAB PO SCH (09:28)
[2018-04-14] MEDS: lamoTRIgine 100 MG TAB PO SCH (09:28)
[2018-04-14] MEDS: SERTRALINE HCL 50 MG TAB PO SCH (09:28)
[2018-04-14] MEDS: LISINOPRIL 20 MG TAB PO SCH (09:29)
[2018-04-14 13:00] VITALS: BP 101/66
[2018-04-14 17:00] VITALS: BP 96/65
== END 2018-04-14 20:05 | disposition short-term general hospital (02) ==
LOC: ER 16:42 → EDBD 16:42 → OVERFLOW 16:43 → WEST WING 04-06 00:35
PROVIDERS: ADMIT Nurse Practitioner; ATTEND Internal Medicine
PROC: 0FJB8ZZ Inspection of Hepatobiliary Duct, Via Natural or Artificial Opening Endoscopic (ICD-10-PCS; principal; 2018-04-11 16:20)
DX: K83.1 Obstruction of bile duct (principal); N17.0 Acute kidney failure with tubular necrosis; K83.8 Other specified diseases of biliary tract; R94.5 Abnormal results of liver function studies; R79.89 Other specified abnormal findings of blood chemistry; G40.909 Epilepsy, unspecified, not intractable, without status epilepticus; Z88.6 Allergy status to analgesic agent; Z88.2 Allergy status to sulfonamides; Z88.8 Allergy status to other drugs, medicaments and biological substances; I10 Essential (primary) hypertension; F32.9 Major depressive disorder, single episode, unspecified; G62.9 Polyneuropathy, unspecified; F41.9 Anxiety disorder, unspecified; K21.9 Gastro-esophageal reflux disease without esophagitis; Z79.899 Other long term (current) drug therapy; I25.10 Atherosclerotic heart disease of native coronary artery without angina pectoris; Z90.49 Acquired absence of other specified parts of digestive tract; F17.210 Nicotine dependence, cigarettes, uncomplicated; K31.89 Other diseases of stomach and duodenum; D35.01 Benign neoplasm of right adrenal gland; E78.5 Hyperlipidemia, unspecified; F12.90 Cannabis use, unspecified, uncomplicated; F20.9 Schizophrenia, unspecified; G89.29 Other chronic pain; I70.0 Atherosclerosis of aorta; Z53.9 Procedure and treatment not carried out, unspecified reason; Z80.8 Family history of malignant neoplasm of other organs or systems; Z82.49 Family history of ischemic heart disease and other diseases of the circulatory system; Z83.3 Family history of diabetes mellitus; D35.02 Benign neoplasm of left adrenal gland
CPT/HCPCS: 36415; 43260; 71045; 74018; 74176; 74181; 76000; 80053; 80061; 80074; 80076; 80307; 81001; 82150; 82390; 82962; 83540; 83550; 83690; 83735; 84132; 84443; 84484; 85025; 85610; 85730; 86850; 86900; 86901; 87081; 93005; 94761; 96374; 96375; A6257; C9113; J0696; J1100; J2250; J2405; J2704

== ENCOUNTER 2018-05-04 17:41 | Emergency (ER) | payer MEDICAID ==
[~2018-05-04] VITALS: Ht 167.6 cm; Wt 68.0 kg
[~2018-05-04 17:41] MED LIST changes: -CLON0.1T PO; -DIPH50TA9 PO; -DOCU100T15 PO; +FLUT1SPR21; +KETO0.025 EACHEYE; +LORA-154 PO; -LORA-654 PO; +LORA2TAB10 PO; -OMEP20TA44 PO; -ONDA4TAB5; -OXCA600T3; -[UNRECOGNIZED DRUG - CODE]
[2018-05-04 18:48] LABS: Basophils # (auto) 0.1 uL; Basophils % (auto) 0.8 % (0.0-2.0); Eosinophils # (auto) 0.5 uL; Eosinophils % (auto) 6.6 % (0.0-7.0); Hematocrit 37.1 % (36.0-46.0); Hemoglobin 12.6 g/dL (12.2-16.2); Lymphocytes # (auto) 1.3 uL; Lymphocytes % (auto) 16.8 % (10.0-50.0); Mean Corpuscular Hemoglobin 32.3 pg (28.0-32.0); Mean Corpuscular Volume 94.9 fL (80.0-100.0); Monocytes # (auto) 0.6 uL; Neutrophils # (auto) 5.2 uL; Neutrophils % (auto) 67.8 % (37.0-80.0); Nucleated Red Blood Cells % 0.1 %; Platelet Count (auto) 351 10^3/uL (140-450); Red Cell Distribution Width 14.2 % (11.8-14.3); White Blood Cell 7.7 10^3/uL (4.4-10.8)
[2018-05-04 19:12] LABS: Urine Bacteria FEW /hpf (None Seen); Urine Blood Negative /uL (Negative); Urine WBC 2 /hpf (0 - 5)
[2018-05-04 19:13] LABS: Albumin 3.9 g/dL (3.4-5.0); Anion Gap 6 (5-15); Calcium 8.7 mg/dL (8.5-10.1); Carbon Dioxide 25 mmol/L (21-32); Chloride 106 mmol/L (98-107); Glucose 81 mg/dL (74-106); Magnesium 2.4 mg/dL (1.6-2.6); Potassium 4.7 mmol/L (3.5-5.1); Sodium 137 mmol/L (136-145)
[2018-05-04 19:24] LABS: Alanine Aminotransferase 42 U/L (13-56); Alkaline Phosphatase 234 U/L (45-117); Aspartate Aminotransferase 24 U/L (15-37); BUN/Creatinine Ratio 24.2; Bilirubin, Total 0.2 mg/dL (0.2-1.0); Blood Urea Nitrogen 23 mg/dL (7-18); GFR African American 79 mL/min; GFR Non-African American 65 mL/min; Total Protein 7.5 g/dL (6.4-8.2)
[2018-05-04] MEDS ORDERED: SODIUM CHLORIDE 0.9% 1,000 ML IV ONE (20:30)
[2018-05-04] MEDS ORDERED: ONDANSETRON HCL 4 MG/2 ML VIAL IV ONE (20:30)
[2018-05-04] MEDS ORDERED: MORPHINE SULFATE 4 MG/ML SYR/VIAL IV ONE (20:30)
[2018-05-04] MEDS ORDERED: MAGNESIUM CITRATE SOLUTION 300 ML BTL PO ONE (23:00)
[2018-05-04] MEDS ORDERED: LACTULOSE 20Gm/30ML SOLN PO ONE (23:15)
[2018-05-05] MEDS ORDERED: MORPHINE SULFATE 4 MG/ML SYR/VIAL IV ONE (01:00)
[2018-05-05 01:31] VITALS: BP 145/83
== END 2018-05-05 01:53 | disposition home or self-care (01) ==
LOC: ER 17:45
DX: K59.00 Constipation, unspecified (principal); R11.10 Vomiting, unspecified; I25.10 Atherosclerotic heart disease of native coronary artery without angina pectoris; K21.9 Gastro-esophageal reflux disease without esophagitis; E78.5 Hyperlipidemia, unspecified; I10 Essential (primary) hypertension; E07.9 Disorder of thyroid, unspecified; F17.210 Nicotine dependence, cigarettes, uncomplicated; Z88.8 Allergy status to other drugs, medicaments and biological substances; Z88.5 Allergy status to narcotic agent; Z88.2 Allergy status to sulfonamides; Z79.899 Other long term (current) drug therapy; Z90.49 Acquired absence of other specified parts of digestive tract
CPT/HCPCS: 36415; 74176; 80053; 81001; 83690; 83735; 84484; 85025; 93005; 96361; 96374; 96375; 96376; 99285; J2270; J2405

== ENCOUNTER 2018-05-17 13:54 | Emergency (ER) | payer MEDICAID ==
[~2018-05-17] VITALS: Ht 167.6 cm; Wt 63.5 kg
[2018-05-17 14:46] LABS: Basophils # (auto) 0.1 uL; Basophils % (auto) 0.9 % (0.0-2.0); Eosinophils # (auto) 0.2 uL; Eosinophils % (auto) 2.8 % (0.0-7.0); Hematocrit 41.7 % (36.0-46.0); Hemoglobin 13.8 g/dL (12.2-16.2); Lymphocytes # (auto) 1.9 uL; Lymphocytes % (auto) 22.7 % (10.0-50.0); Mean Corpuscular Hemoglobin 31.3 pg (28.0-32.0); Mean Corpuscular Hgb Conc. 33.1 g/dL (32.0-36.0); Mean Corpuscular Volume 94.8 fL (80.0-100.0); Monocytes # (auto) 0.6 uL; Monocytes % (auto) 7.4 % (0.0-12.0); Neutrophils # (auto) 5.6 uL; Neutrophils % (auto) 66.2 % (37.0-80.0); Platelet Count (auto) 323 10^3/uL (140-450); Red Cell Distribution Width 14.1 % (11.8-14.3); White Blood Cell 8.5 10^3/uL (4.4-10.8)
[2018-05-17 15:00] LABS: Chloride 109 mmol/L (98-107); Potassium 4.6 mmol/L (3.5-5.1); Sodium 135 mmol/L (136-145)
[2018-05-17 15:05] LABS: INR 0.94 (0.9-1.15); Partial Thromboplastin Time 28.1 sec (23.78-33.04); Prothrombin Time 10.1 sec (9.27-12.13)
[2018-05-17 15:10] LABS: Alanine Aminotransferase 26 U/L (13-56); Albumin 4.3 g/dL (3.4-5.0); Alkaline Phosphatase 228 U/L (45-117); Anion Gap 6 (5-15); Aspartate Aminotransferase 16 U/L (15-37); BUN/Creatinine Ratio 23.9; Bilirubin, Total 0.2 mg/dL (0.2-1.0); Blood Urea Nitrogen 32 mg/dL (7-18); Calcium 8.4 mg/dL (8.5-10.1); Carbon Dioxide 20 mmol/L (21-32); GFR African American 53 mL/min; GFR Non-African American 44 mL/min; Glucose 113 mg/dL (74-106); Total Protein 7.8 g/dL (6.4-8.2)
[2018-05-17 21:30] VITALS: BP 114/74
== END 2018-05-17 22:14 | disposition home or self-care (01) ==
LOC: ER 13:54
DX: S80.12XA Contusion of left lower leg, initial encounter (principal); R53.83 Other fatigue; F32.9 Major depressive disorder, single episode, unspecified; F41.9 Anxiety disorder, unspecified; K21.9 Gastro-esophageal reflux disease without esophagitis; I10 Essential (primary) hypertension; E78.5 Hyperlipidemia, unspecified; F17.210 Nicotine dependence, cigarettes, uncomplicated; Z90.49 Acquired absence of other specified parts of digestive tract; Z88.2 Allergy status to sulfonamides; Z88.6 Allergy status to analgesic agent; Z79.899 Other long term (current) drug therapy; X58.XXXA Exposure to other specified factors, initial encounter; Y93.89 Activity, other specified; Y92.89 Other specified places as the place of occurrence of the external cause; Y99.8 Other external cause status
CPT/HCPCS: 36415; 80053; 84484; 85025; 85610; 85730; 93005

== ENCOUNTER 2018-08-19 15:39 | Inpatient (IN) | payer MEDICAID | END 2018-08-23 16:00 | disposition home or self-care (01) | LOC: TELE-EAST 08-23 02:28 → ER 15:39 → TELE 21:38 | DX: T42.0X1A Poisoning by hydantoin derivatives, accidental (unintentional), initial encounter (principal); I67.1 Cerebral aneurysm, nonruptured; N18.3 Chronic kidney disease, stage 3 (moderate); F29 Unspecified psychosis not due to a substance or known physiological condition; G40.409 Other generalized epilepsy and epileptic syndromes, not intractable, without status epilepticus; F31.9 Bipolar disorder, unspecified; F41.1 Generalized anxiety disorder; I12.9 Hypertensive chronic kidney disease with stage 1 through stage 4 chronic kidney disease, or unspecified chronic kidney disease; I10 Essential (primary) hypertension; T42.0X5A Adverse effect of hydantoin derivatives, initial encounter; Z79.899 Other long term (current) drug therapy; K59.00 Constipation, unspecified; K21.9 Gastro-esophageal reflux disease without esophagitis ==

== ENCOUNTER 2018-09-10 08:09 | Emergency (ER) | payer MEDICAID ==
[~2018-09-10] VITALS: Ht 167.6 cm; Wt 72.6 kg
[~2018-09-10 08:09] MED LIST changes: +ALEN35TA18 PO; +ASPI81TA27 PO; +ATOR40TA52 PO; +BUSP15TA60 PO; -CARI-277; +CHOL20007 PO; -FAM20T PO; +FERR-20 PO; +FURO20TA3 PO; -FURO40TA4 PO; -GABA-339 PO; +GABA250S2 PO; -HYDR50TA15 PO; -KETO0.025 EACHEYE; +LAMO100T44 PO; +LISI-646 PO; -LISI40TA PO; +LITH300C3 PO; -LORA-154 PO; +LORA-622 PO; -LORA-653 PO; -LORA2TAB10 PO; -NOR10T PO; -POTA10TA51 PO; +PRA1C PO; -QUET300T14 PO; +QUET400T12 PO; +SERT-274 PO; -SERT25TA84; -TEMA15CA91 PO; +TIZA4CAP PO; -TIZA4TAB9 PO
[2018-09-10] MEDS ORDERED: LORazepam 2MG/ML-1ML VIAL ONE (08:32)
[2018-09-10] MEDS ORDERED: LORazepam 2MG/ML-1ML VIAL IV ONE (08:45)
[2018-09-10 09:42] LABS: Basophils # (auto) 0 uL; Basophils % (auto) 0.7 % (0.0-2.0); Eosinophils # (auto) 0.3 uL; Eosinophils % (auto) 3.7 % (0.0-7.0); Hematocrit 41.8 % (36.0-46.0); Hemoglobin 13.7 g/dL (12.2-16.2); Lymphocytes # (auto) 1.8 uL; Lymphocytes % (auto) 26.3 % (10.0-50.0); Mean Corpuscular Hgb Conc. 32.8 g/dL (32.0-36.0); Mean Corpuscular Volume 94.5 fL (80.0-100.0); Monocytes # (auto) 0.6 uL; Monocytes % (auto) 8.7 % (0.0-12.0); Neutrophils # (auto) 4.1 uL; Neutrophils % (auto) 60.6 % (37.0-80.0); Nucleated Red Blood Cells % 0.1 %; Platelet Count (auto) 258 10^3/uL (140-450); Red Blood Cells 4.43 10^6/uL (4.0-5.20); Red Cell Distribution Width 14.1 % (11.8-14.3); White Blood Cell 6.8 10^3/uL (4.4-10.8)
[2018-09-10 09:44] LABS: Urine Bacteria NONE SEEN /hpf (None Seen); Urine Blood Negative /uL (Negative); Urine Specific Gravity 1.006 (1.001-1.035); Urine WBC 1 /hpf (0 - 5)
[2018-09-10 09:53] LABS: Albumin 4.3 g/dL (3.4-5.0); BUN/Creatinine Ratio 17.3; Calcium 8.8 mg/dL (8.5-10.1); Magnesium 2.6 mg/dL (1.6-2.6)
[2018-09-10 09:56] LABS: Bilirubin, Total 0.2 mg/dL (0.2-1.0); Total Protein 7.8 g/dL (6.4-8.2)
[2018-09-10] MEDS ORDERED: FLEET ENEMA(ADULT) 135 ML PR ONE (10:45)
[2018-09-10] MEDS ORDERED: MORPHINE SULFATE 4 MG/ML SYR/VIAL IV ONE (10:45)
[2018-09-10 13:03] VITALS: BP 109/77
== END 2018-09-10 13:49 | disposition home or self-care (01) ==
LOC: ER 08:17
DX: K59.00 Constipation, unspecified (principal); G40.909 Epilepsy, unspecified, not intractable, without status epilepticus; K21.9 Gastro-esophageal reflux disease without esophagitis; E78.5 Hyperlipidemia, unspecified; I10 Essential (primary) hypertension; F17.210 Nicotine dependence, cigarettes, uncomplicated; Z76.0 Encounter for issue of repeat prescription; Z88.5 Allergy status to narcotic agent; Z88.2 Allergy status to sulfonamides; Z79.899 Other long term (current) drug therapy
CPT/HCPCS: 36415; 74176; 80053; 80185; 81001; 83690; 83735; 85025; 93005; 94761; 96374; 96375; 99284; J2060; J2270

== ENCOUNTER 2018-09-23 11:01 | Emergency (ER) | payer MEDICAID ==
[~2018-09-23] VITALS: Ht 165.1 cm; Wt 68.0 kg
[2018-09-23 12:06] LABS: Basophils # (auto) 0.1 uL; Basophils % (auto) 0.7 % (0.0-2.0); Eosinophils # (auto) 0.1 uL; Eosinophils % (auto) 1.6 % (0.0-7.0); Hematocrit 43.7 % (36.0-46.0); Hemoglobin 14.8 g/dL (12.2-16.2); Lymphocytes # (auto) 1.5 uL; Lymphocytes % (auto) 20.2 % (10.0-50.0); Mean Corpuscular Hemoglobin 31.5 pg (28.0-32.0); Mean Corpuscular Hgb Conc. 33.8 g/dL (32.0-36.0); Mean Corpuscular Volume 93.1 fL (80.0-100.0); Monocytes # (auto) 0.4 uL; Monocytes % (auto) 5.4 % (0.0-12.0); Neutrophils # (auto) 5.4 uL; Neutrophils % (auto) 72.1 % (37.0-80.0); Platelet Count (auto) 304 10^3/uL (140-450); Red Blood Cells 4.69 10^6/uL (4.0-5.20); White Blood Cell 7.5 10^3/uL (4.4-10.8)
[2018-09-23 12:13] LABS: Albumin 4.3 g/dL (3.4-5.0); Calcium 9.6 mg/dL (8.5-10.1); Potassium 4.5 mmol/L (3.5-5.1)
[2018-09-23 12:16] LABS: Bilirubin, Total 0.4 mg/dL (0.2-1.0); Total Protein 8.1 g/dL (6.4-8.2)
[2018-09-23 16:35] VITALS: BP 139/97
== END 2018-09-23 16:38 | disposition home or self-care (01) ==
LOC: EDBD 11:01 → EDUNIT# 11:01 → ER 11:06
DX: G40.909 Epilepsy, unspecified, not intractable, without status epilepticus (principal); K21.9 Gastro-esophageal reflux disease without esophagitis; E78.5 Hyperlipidemia, unspecified; I10 Essential (primary) hypertension; E07.9 Disorder of thyroid, unspecified; F12.90 Cannabis use, unspecified, uncomplicated; F17.210 Nicotine dependence, cigarettes, uncomplicated; Z86.73 Personal history of transient ischemic attack (TIA), and cerebral infarction without residual deficits; Z90.49 Acquired absence of other specified parts of digestive tract
CPT/HCPCS: 36415; 70450; 80053; 85025; 93005

== ENCOUNTER 2018-10-05 04:02 | Emergency (ER) | payer MEDICAID ==
[~2018-10-05] VITALS: Ht 175.3 cm; Wt 72.6 kg
[2018-10-05 04:23] VITALS: BP 162/92
== END 2018-10-05 07:43 | disposition left against medical advice (07) ==
LOC: ER 04:02 → EDBD 04:02 → ER 07:43
DX: R07.9 Chest pain, unspecified (principal); R56.9 Unspecified convulsions; F41.9 Anxiety disorder, unspecified; Z53.21 Procedure and treatment not carried out due to patient leaving prior to being seen by health care provider
CPT/HCPCS: 71045; 73030

== ENCOUNTER 2018-10-07 16:10 | Emergency (ER) | payer MEDICAID ==
[~2018-10-07] VITALS: Ht 167.6 cm; Wt 72.6 kg
[2018-10-07 16:55] LABS: Basophils # (auto) 0.1 uL; Eosinophils # (auto) 0.3 uL; Eosinophils % (auto) 3.7 % (0.0-7.0); Hematocrit 44.4 % (36.0-46.0); Hemoglobin 14.7 g/dL (12.2-16.2); Lymphocytes # (auto) 1.6 uL; Lymphocytes % (auto) 18.2 % (10.0-50.0); Mean Corpuscular Hemoglobin 31.2 pg (28.0-32.0); Mean Corpuscular Hgb Conc. 33.2 g/dL (32.0-36.0); Monocytes # (auto) 0.6 uL; Monocytes % (auto) 6.8 % (0.0-12.0); Neutrophils # (auto) 6.3 uL; Neutrophils % (auto) 70.3 % (37.0-80.0); Platelet Count (auto) 311 10^3/uL (140-450); Red Blood Cells 4.72 10^6/uL (4.0-5.20); Red Cell Distribution Width 14.2 % (11.8-14.3)
[2018-10-07 17:08] LABS: Albumin 4.3 g/dL (3.4-5.0); BUN/Creatinine Ratio 16.2; Calcium 9.3 mg/dL (8.5-10.1); Potassium 4.4 mmol/L (3.5-5.1)
[2018-10-07 17:27] LABS: Bilirubin, Total 0.3 mg/dL (0.2-1.0); Total Protein 8.1 g/dL (6.4-8.2)
[2018-10-07 21:30] VITALS: BP 157/93
[2018-10-07] MEDS ORDERED: MAGNESIUM CITRATE SOLUTION 300 ML BTL PO ONE (22:00)
[2018-10-07] MEDS ORDERED: HYDROcodone-ACET 10/325MG TAB PO ONE (22:00)
== END 2018-10-07 22:16 | disposition home or self-care (01) ==
LOC: ER 16:10
DX: R10.10 Upper abdominal pain, unspecified (principal); G40.909 Epilepsy, unspecified, not intractable, without status epilepticus; K21.9 Gastro-esophageal reflux disease without esophagitis; E78.5 Hyperlipidemia, unspecified; I10 Essential (primary) hypertension; E07.9 Disorder of thyroid, unspecified; F17.210 Nicotine dependence, cigarettes, uncomplicated; F12.90 Cannabis use, unspecified, uncomplicated; Z79.82 Long term (current) use of aspirin; Z79.899 Other long term (current) drug therapy; Z86.73 Personal history of transient ischemic attack (TIA), and cerebral infarction without residual deficits
CPT/HCPCS: 36415; 74176; 80053; 85025; 93005

== ENCOUNTER 2019-02-10 12:29 | Emergency (ER) | payer MEDICAID ==
[~2019-02-10] VITALS: Ht 162.6 cm; Wt 70.3 kg
[~2019-02-10 12:29] MED LIST changes: +ASPI-404 PO; -ASPI81TA27 PO; -LITH300C3 PO; -LORA-622 PO; +PANT40T PO; -PHE100C PO; -PRA1C PO; +SUCR1SUS10 PO; -TIZA4CAP PO
[2019-02-10 13:26] LABS: Basophils # (auto) 0.1 uL; Basophils % (auto) 1.2 % (0.0-2.0); Eosinophils # (auto) 0.4 uL; Eosinophils % (auto) 6.4 % (0.0-7.0); Hematocrit 37.9 % (36.0-46.0); Hemoglobin 12.9 g/dL (12.2-16.2); Lymphocytes # (auto) 2.3 uL; Lymphocytes % (auto) 34.4 % (10.0-50.0); Mean Corpuscular Hemoglobin 29.9 pg (28.0-32.0); Monocytes # (auto) 0.4 uL; Monocytes % (auto) 6.4 % (0.0-12.0); Neutrophils # (auto) 3.5 uL; Neutrophils % (auto) 51.6 % (37.0-80.0); Platelet Count (auto) 201 10^3/uL (140-450); Red Blood Cells 4.31 10^6/uL (4.0-5.20); Red Cell Distribution Width 15.1 % (11.8-14.3); White Blood Cell 6.7 10^3/uL (4.4-10.8)
[2019-02-10 13:42] LABS: Urine Bacteria FEW /hpf (None Seen); Urine Blood Negative /uL (Negative); Urine Mucus FEW (None Seen); Urine WBC 4 /hpf (0 - 5)
[2019-02-10 13:48] LABS: Albumin 4.1 g/dL (3.4-5.0); Calcium 9.1 mg/dL (8.5-10.1); Potassium 3.7 mmol/L (3.5-5.1)
[2019-02-10 13:56] LABS: Alcohol, Urine < 3.0 mg/dL (0-5); Amphetamine Screen, Urine NEGATIVE (NEGATIVE); Barbiturate Scree,Urine NEGATIVE (NEGATIVE); Benzodiazephine Screen, Urine NEGATIVE (NEGATIVE); Cannabinoid Screen, Urine POSITIVE (NEGATIVE); Cocaine Screen, Urine NEGATIVE (NEGATIVE); Opiate Scree,Urine NEGATIVE (NEGATIVE); Phencyclidine Screen, Urine NEGATIVE (NEGATIVE)
[2019-02-10 13:57] LABS: Bilirubin, Total 0.4 mg/dL (0.2-1.0); Total Protein 7.4 g/dL (6.4-8.2)
[2019-02-10 14:10] VITALS: BP 128/76
[2019-02-10 14:19] LABS: BUN/Creatinine Ratio 16.9
[2019-02-10 14:58] LABS: Acetaminophen < 2.0 ug/mL (10-30)
== END 2019-02-10 15:01 | disposition home or self-care (01) ==
LOC: ER 12:37
DX: Z04.6 Encounter for general psychiatric examination, requested by authority (principal); N39.0 Urinary tract infection, site not specified; F17.210 Nicotine dependence, cigarettes, uncomplicated; K21.9 Gastro-esophageal reflux disease without esophagitis; E78.5 Hyperlipidemia, unspecified; I10 Essential (primary) hypertension; F12.10 Cannabis abuse, uncomplicated; Z86.73 Personal history of transient ischemic attack (TIA), and cerebral infarction without residual deficits
CPT/HCPCS: 36415; 80053; 80307; 80329; 81001; 85025

== ENCOUNTER 2019-04-03 12:16 | Emergency (ER) | payer MEDICAID ==
[~2019-04-03] VITALS: Ht 167.6 cm; Wt 68.0 kg
[2019-04-03 13:44] LABS: Basophils # (auto) 0.1 uL; Basophils % (auto) 0.8 % (0.0-2.0); Eosinophils # (auto) 0.4 uL; Eosinophils % (auto) 3.4 % (0.0-7.0); Hematocrit 41.8 % (36.0-46.0); Lymphocytes # (auto) 1.7 uL; Mean Corpuscular Hemoglobin 29.2 pg (28.0-32.0); Mean Corpuscular Hgb Conc. 33.5 g/dL (32.0-36.0); Mean Corpuscular Volume 87.3 fL (80.0-100.0); Monocytes # (auto) 0.5 uL; Monocytes % (auto) 4.5 % (0.0-12.0); Neutrophils # (auto) 7.8 uL; Neutrophils % (auto) 75.3 % (37.0-80.0); Platelet Count (auto) 305 10^3/uL (140-450); Red Blood Cells 4.79 10^6/uL (4.0-5.20); Red Cell Distribution Width 14.8 % (11.8-14.3); White Blood Cell 10.3 10^3/uL (4.4-10.8)
[2019-04-03 14:07] LABS: Salicylate 5.1 mg/dL (2.8-20.0)
[2019-04-03 14:08] LABS: Albumin 4.3 g/dL (3.4-5.0); Anion Gap 8 (5-15); BUN/Creatinine Ratio 12.4; Blood Alcohol < 3.0 mg/dL (0-5); Blood Urea Nitrogen 14 mg/dL (7-18); Calcium 9.5 mg/dL (8.5-10.1); Carbon Dioxide 22 mmol/L (21-32); Chloride 107 mmol/L (98-107); GFR African American 64 mL/min; GFR Non-African American 53 mL/min; Glucose 93 mg/dL (74-106); Potassium 4.3 mmol/L (3.5-5.1); Sodium 137 mmol/L (136-145)
[2019-04-03 14:11] LABS: Alanine Aminotransferase 28 U/L (13-56); Alkaline Phosphatase 126 U/L (45-117); Aspartate Aminotransferase 18 U/L (15-37); Bilirubin, Total 0.5 mg/dL (0.2-1.0); Total Protein 8.1 g/dL (6.4-8.2)
[2019-04-03 14:21] LABS: Acetaminophen < 2.0 ug/mL (10-30)
[2019-04-03] MEDS ORDERED: ACETAMINOPHEN 325 MG TAB PO ONE (15:30)
[2019-04-03] MEDS ORDERED: LORazepam 0.5 MG TAB PO ONE (22:30)
[2019-04-03] MEDS ORDERED: ACETAMINOPHEN 500 MG TAB PO ONE (23:30)
[2019-04-04] MEDS ORDERED: GABAPENTIN 300 MG CAP PO ONE (13:35)
[2019-04-04] MEDS ORDERED: lamoTRIgine 100 MG TAB PO ONE (13:35)
[2019-04-04] MEDS ORDERED: LEVETIRACETAM 500 MG TAB PO ONE (13:35)
[2019-04-04] MEDS ORDERED: SERTRALINE HCL 50 MG TAB PO ONE (14:36)
[2019-04-04] MEDS ORDERED: busPIRone HCL 10 MG TAB PO ONE (14:36)
[2019-04-04] MEDS: busPIRone HCL 10 MG TAB PO SCH (22:30)
[2019-04-04] MEDS: QUEtiapine FUMARATE 100 MG TAB PO SCH (22:30)
[2019-04-04] MEDS: GABAPENTIN 300 MG CAP PO SCH (22:30)
[2019-04-04] MEDS: lamoTRIgine 100 MG TAB PO SCH (22:30)
[2019-04-04] MEDS: LEVETIRACETAM 500 MG TAB PO SCH (22:30)
[2019-04-05] MEDS ORDERED: ACETAMINOPHEN 325 MG TAB PO ONE (01:15)
[2019-04-05] MEDS: LORazepam 0.5 MG TAB PO PRN ×3 (01:22→22:48)
[2019-04-05] MEDS: busPIRone HCL 10 MG TAB PO SCH ×2 (12:40→22:31)
[2019-04-05] MEDS: lamoTRIgine 100 MG TAB PO SCH ×2 (12:41→22:31)
[2019-04-05] MEDS: SERTRALINE HCL 50 MG TAB PO SCH (12:41)
[2019-04-05] MEDS: LEVETIRACETAM 500 MG TAB PO SCH ×2 (12:41→22:31)
[2019-04-05] MEDS: GABAPENTIN 300 MG CAP PO SCH ×2 (12:41→22:31)
[2019-04-05] MEDS: QUEtiapine FUMARATE 100 MG TAB PO SCH (23:19)
[2019-04-06] MEDS: GABAPENTIN 300 MG CAP PO SCH (11:00)
[2019-04-06] MEDS: LEVETIRACETAM 500 MG TAB PO SCH ×2 (11:00→21:09)
[2019-04-06] MEDS: busPIRone HCL 10 MG TAB PO SCH (11:00)
[2019-04-06] MEDS: lamoTRIgine 100 MG TAB PO SCH (11:00)
[2019-04-06] MEDS: SERTRALINE HCL 50 MG TAB PO SCH (11:00)
[2019-04-06] MEDS ORDERED: LORazepam 0.5 MG TAB PO ONE (14:15)
[2019-04-06] MEDS: LORazepam 0.5 MG TAB PO PRN (15:27)
[2019-04-06 20:23] VITALS: BP 134/74
[2019-04-06] MEDS ORDERED: busPIRone HCL 10 MG TAB ONE (22:29)
[2019-04-06] MEDS ORDERED: lamoTRIgine 100 MG TAB ONE (22:29)
[2019-04-06] MEDS ORDERED: GABAPENTIN 300 MG CAP ONE (22:29)
[2019-04-06] MEDS ORDERED: QUEtiapine FUMARATE 100 MG TAB ONE ×2 (22:29→22:33)
== END 2019-04-06 21:10 | disposition home or self-care (01) ==
LOC: ER 12:20
DX: R45.851 Suicidal ideations (principal); F41.9 Anxiety disorder, unspecified; F31.9 Bipolar disorder, unspecified; F20.9 Schizophrenia, unspecified; K21.9 Gastro-esophageal reflux disease without esophagitis; E78.5 Hyperlipidemia, unspecified; I10 Essential (primary) hypertension; E07.9 Disorder of thyroid, unspecified; F17.210 Nicotine dependence, cigarettes, uncomplicated; F12.90 Cannabis use, unspecified, uncomplicated
CPT/HCPCS: 36415; 80053; 80320; 80329; 85025

== ENCOUNTER → 2020-01-14 | Emergency (ER) | payer MEDICAID ==
[~2020-01-14] VITALS: Ht 172.7 cm; Wt 63.5 kg
[~2020-01-14] MED LIST changes: +POTASSIUM CHL 20 Meq TABLET PO ONE; +levETIRAcetam 500 MG TAB PO ONE
[2020-01-14 15:35] VITALS: BP 104/46
[2020-01-14 16:21] LABS: Basophils # (auto) 0.1 10 ^3/uL (0-0.2); Basophils % (auto) 0.8 % (0.0-2.0); Eosinophils # (auto) 0.2 10 ^3/uL (0-0.8); Eosinophils % (auto) 1.9 % (0.0-7.0); Hematocrit 43.1 % (36.0-46.0); Hemoglobin 14.1 g/dL (12.2-16.2); Lymphocytes # (auto) 2.5 10 ^3/uL (0.4-5.4); Lymphocytes % (auto) 21.3 % (10.0-50.0); Mean Corpuscular Hemoglobin 28.6 pg (28.0-32.0); Mean Corpuscular Hgb Conc. 32.7 g/dL (32.0-36.0); Mean Corpuscular Volume 87.5 fL (80.0-100.0); Monocytes # (auto) 0.9 10 ^3/uL (0-1.3); Monocytes % (auto) 7.2 % (0.0-12.0); Neutrophils # (auto) 8.2 10 ^3/uL (1.6-8.6); Neutrophils % (auto) 68.8 % (37.0-80.0); Nucleated Red Blood Cells % 0.1 %; Platelet Count (auto) 264 10^3/uL (140-450); Red Blood Cells 4.93 10^6/uL (4.0-5.20); Red Cell Distribution Width 14.8 % (11.8-14.3)
[2020-01-14 16:39] LABS: Alanine Aminotransferase 24 U/L (13-56); Albumin 4.1 g/dL (3.4-5.0); Anion Gap 8 (5-15); Aspartate Aminotransferase 12 U/L (15-37); BUN/Creatinine Ratio 18.8; Blood Alcohol < 3.0 mg/dL (0-5); Blood Urea Nitrogen 28 mg/dL (7-18); Calcium 8.8 mg/dL (8.5-10.1); Carbon Dioxide 21 mmol/L (21-32); Chloride 106 mmol/L (98-107); GFR African American 46 mL/min; GFR Non-African American 38 mL/min; Glucose 85 mg/dL (74-106); Magnesium 2.6 mg/dL (1.6-2.6); Potassium 3.3 mmol/L (3.5-5.1); Salicylate 5.8 mg/dL (2.8-20.0); Sodium 135 mmol/L (136-145)
[2020-01-14 16:41] LABS: Acetaminophen < 2.0 ug/mL (10-30); Alkaline Phosphatase 186 U/L (45-117); Bilirubin, Total 0.5 mg/dL (0.2-1.0); Total Protein 7.8 g/dL (6.4-8.2)
[2020-01-14 20:26] LABS: Urine Bacteria FEW /hpf (None Seen); Urine Blood Negative /uL (Negative); Urine Specific Gravity 1.006 (1.001-1.035); Urine WBC 2 /hpf (0 - 5)
[2020-01-14 20:38] LABS: Alcohol, Urine < 3.0 mg/dL (0-10); Amphetamine Screen, Urine NEGATIVE (NEGATIVE); Barbiturate Scree,Urine NEGATIVE (NEGATIVE); Benzodiazephine Screen, Urine NEGATIVE (NEGATIVE); Cocaine Screen, Urine NEGATIVE (NEGATIVE); Opiate Scree,Urine NEGATIVE (NEGATIVE); Phencyclidine Screen, Urine NEGATIVE (NEGATIVE)
[2020-01-14 20:47] LABS: Cannabinoid Screen, Urine POSITIVE (NEGATIVE)
== END | disposition home or self-care (01) ==
LOC: ER 15:24
DX: G40.909 Epilepsy, unspecified, not intractable, without status epilepticus (principal); I12.9 Hypertensive chronic kidney disease with stage 1 through stage 4 chronic kidney disease, or unspecified chronic kidney disease; N18.3 Chronic kidney disease, stage 3 (moderate); E87.6 Hypokalemia; R74.8 Abnormal levels of other serum enzymes; F12.10 Cannabis abuse, uncomplicated; F17.210 Nicotine dependence, cigarettes, uncomplicated; K21.9 Gastro-esophageal reflux disease without esophagitis; Z90.49 Acquired absence of other specified parts of digestive tract; Z76.0 Encounter for issue of repeat prescription; Z59.0 Homelessness; Z86.73 Personal history of transient ischemic attack (TIA), and cerebral infarction without residual deficits
CPT/HCPCS: 36415; 80053; 80307; 80320; 80329; 81001; 83735; 85025

== ENCOUNTER 2020-06-02 14:00 | Inpatient (IN) | payer MEDICAID ==
[~2020-06-02] VITALS: Ht 167.6 cm; Wt 79.4 kg
[~2020-06-02 14:00] MED LIST changes: -ASPI-404 PO; +ASPI-543 PO; -POTASSIUM CHL 20 Meq TABLET PO ONE; -levETIRAcetam 500 MG TAB PO ONE
[2020-06-02 16:33] LABS: Urine Bacteria FEW /hpf (None Seen); Urine Blood Negative /uL (Negative); Urine Specific Gravity 1.018 (1.001-1.035); Urine WBC 3 /hpf (0 - 5)
[2020-06-02] MEDS ORDERED: ONDANSETRON HCL 4 MG/2 ML VIAL IV ONE ×2 (16:45→20:00)
[2020-06-02 16:52] LABS: Alcohol, Urine < 3.0 mg/dL (0-10); Amphetamine Screen, Urine NEGATIVE (NEGATIVE); Barbiturate Scree,Urine NEGATIVE (NEGATIVE); Benzodiazephine Screen, Urine NEGATIVE (NEGATIVE); Cannabinoid Screen, Urine POSITIVE (NEGATIVE); Cocaine Screen, Urine NEGATIVE (NEGATIVE); Opiate Scree,Urine NEGATIVE (NEGATIVE); Phencyclidine Screen, Urine NEGATIVE (NEGATIVE)
[2020-06-02 17:06] LABS: Basophils # (auto) 0.1 10 ^3/uL (0-0.2); Basophils % (auto) 0.6 % (0.0-2.0); Eosinophils # (auto) 0.3 10 ^3/uL (0-0.8); Eosinophils % (auto) 1.8 % (0.0-7.0); Hematocrit 37.7 % (36.0-46.0); Hemoglobin 12.5 g/dL (12.2-16.2); Lymphocytes # (auto) 1.6 10 ^3/uL (0.4-5.4); Lymphocytes % (auto) 9.7 % (10.0-50.0); Mean Corpuscular Hemoglobin 28.8 pg (28.0-32.0); Mean Corpuscular Hgb Conc. 33.1 g/dL (32.0-36.0); Mean Corpuscular Volume 86.9 fL (80.0-100.0); Monocytes # (auto) 0.6 10 ^3/uL (0-1.3); Monocytes % (auto) 3.5 % (0.0-12.0); Neutrophils # (auto) 14.2 10 ^3/uL (1.6-8.6); Neutrophils % (auto) 84.4 % (37.0-80.0); Nucleated Red Blood Cells % 0.1 %; Platelet Count (auto) 258 10^3/uL (140-450); Red Blood Cells 4.34 10^6/uL (4.0-5.20); Red Cell Distribution Width 14.3 % (11.8-14.3); White Blood Cell 16.8 10^3/uL (4.4-10.8)
[2020-06-02 17:27] LABS: Calcium 8.9 mg/dL (8.5-10.1); Chloride 111 mmol/L (98-107); Potassium 4.2 mmol/L (3.5-5.1); Sodium 140 mmol/L (136-145)
[2020-06-02] MEDS ORDERED: ACETAMINOPHEN 325 MG TAB PO ONE (17:45)
[2020-06-02 17:47] LABS: Alanine Aminotransferase 31 U/L (13-56); Albumin 3.7 g/dL (3.4-5.0); Alkaline Phosphatase 123 U/L (45-117); Anion Gap 4 (5-15); Aspartate Aminotransferase 11 U/L (15-37); BUN/Creatinine Ratio 24.8; Bilirubin, Total 0.2 mg/dL (0.2-1.0); Blood Urea Nitrogen 33 mg/dL (7-18); Carbon Dioxide 25 mmol/L (21-32); GFR African American 53 mL/min; GFR Non-African American 44 mL/min; Glucose 89 mg/dL (74-106); Magnesium 2.6 mg/dL (1.6-2.6); Total Protein 6.9 g/dL (6.4-8.2)
[2020-06-02 18:12] LABS: Acetaminophen < 2.0 ug/mL (10-30); Salicylate 3.8 mg/dL (2.8-20.0)
[2020-06-02 18:36] LABS: Blood Alcohol < 3.0 mg/dL (0-5)
[2020-06-02] MEDS ORDERED: cefTRIAXone 1GM/50ML D5W 50 ML IV ONE (19:00)
[2020-06-02] MEDS ORDERED: MORPHINE SULF INJ 2 MG/ML SYRINGE 1ML IV ONE (20:00)
[2020-06-02] MEDS ORDERED: AZITHROMYCIN 500MG/ 250ML 250 ML IV ONE (21:15)
[2020-06-02] MEDS ORDERED: NITROGLYCERIN 0.4 MG SL TAB SL PRN (22:15)
[2020-06-02] MEDS ORDERED: MORPHINE SULF INJ 2 MG/ML SYRINGE 1ML IV PRN (22:15)
[2020-06-02] MEDS: SODIUM CHLORIDE 0.9% 1,000 ML IV SCH (22:46)
[2020-06-03 07:22] LABS: Basophils # (auto) 0.1 10 ^3/uL (0-0.2); Basophils % (auto) 0.8 % (0.0-2.0); Eosinophils # (auto) 0.6 10 ^3/uL (0-0.8); Hematocrit 38.5 % (36.0-46.0); Hemoglobin 12.2 g/dL (12.2-16.2); Lymphocytes # (auto) 1.8 10 ^3/uL (0.4-5.4); Lymphocytes % (auto) 15.3 % (10.0-50.0); Mean Corpuscular Hemoglobin 28.1 pg (28.0-32.0); Mean Corpuscular Hgb Conc. 31.8 g/dL (32.0-36.0); Mean Corpuscular Volume 88.4 fL (80.0-100.0); Monocytes # (auto) 0.7 10 ^3/uL (0-1.3); Monocytes % (auto) 5.5 % (0.0-12.0); Neutrophils # (auto) 8.9 10 ^3/uL (1.6-8.6); Neutrophils % (auto) 73.4 % (37.0-80.0); Nucleated Red Blood Cells % 0.1 %; Platelet Count (auto) 254 10^3/uL (140-450); Red Blood Cells 4.36 10^6/uL (4.0-5.20); White Blood Cell 12.1 10^3/uL (4.4-10.8)
[2020-06-03 07:43] LABS: Albumin 3.6 g/dL (3.4-5.0); BUN/Creatinine Ratio 21.6; Calcium 9.1 mg/dL (8.5-10.1)
[2020-06-03 07:46] LABS: Bilirubin, Total 0.3 mg/dL (0.2-1.0); Total Protein 7.2 g/dL (6.4-8.2)
[2020-06-03] MEDS: SODIUM CHLORIDE 0.9% 1,000 ML IV SCH ×2 (08:31→18:20)
[2020-06-03] MEDS ORDERED: ZINC SULFATE 220mg CAP or TAB PO SCH (10:00)
[2020-06-03] MEDS ORDERED: ASCORBIC ACID 500 MG TAB PO SCH (10:00)
[2020-06-03] MEDS: cefTRIAXone 1GM/50ML D5W 50 ML IV SCH (10:02)
[2020-06-03] MEDS ORDERED: diphenhdrAMINE HCL 25 MG CAP PO PRN (14:15)
[2020-06-03 17:00] VITALS: BP 151/90
[2020-06-03] MEDS: PROMETHAZINE HCL 25 MG/ML 1ML IV PRN (18:23)
[2020-06-03 20:00] VITALS: BP 149/92
[2020-06-03] MEDS: busPIRone HCL 10 MG TAB PO SCH (21:40)
[2020-06-03] MEDS: SUCRALFATE 1 GM/10 ML ORAL SUSP PO SCH (21:41)
[2020-06-03] MEDS: lamoTRIgine 100 MG TAB PO SCH (21:42)
[2020-06-03] MEDS: levETIRAcetam 500 MG TAB PO SCH (21:42)
[2020-06-03] MEDS: GABAPENTIN 300 MG CAP PO SCH (21:42)
[2020-06-03] MEDS: PANTOPRAZOLE 40 MG TAB PO SCH (21:43)
[2020-06-03] MEDS: QUEtiapine FUMARATE 100 MG TAB PO SCH (21:43)
[2020-06-03] MEDS: LISINOPRIL 20 MG TAB PO SCH (21:44)
[2020-06-03] MEDS: FLUTICASONE PROP NASAL SPR 0.05 % (50MCG) 16GM SCH (22:20)
[2020-06-04] MEDS: PROMETHAZINE HCL 25 MG/ML 1ML IV PRN ×2 (04:08→13:20)
[2020-06-04 05:00] VITALS: BP 118/62
[2020-06-04] MEDS: GABAPENTIN 300 MG CAP PO SCH ×2 (06:29→14:00)
[2020-06-04] MEDS: SUCRALFATE 1 GM/10 ML ORAL SUSP PO SCH ×2 (06:30→11:25)
[2020-06-04 08:00] VITALS: BP 128/66
[2020-06-04 08:28] VITALS: BP 128/66
[2020-06-04] MEDS ORDERED: ASPirin-EC 81 mg tab PO SCH (10:00)
[2020-06-04] MEDS ORDERED: SERTRALINE HCL 50 MG TAB PO SCH (10:00)
[2020-06-04] MEDS ORDERED: FUROSEMIDE 20 MG TAB PO SCH (10:00)
[2020-06-04] MEDS: cefTRIAXone 1GM/50ML D5W 50 ML IV SCH (10:34)
[2020-06-04] MEDS: lamoTRIgine 100 MG TAB PO SCH (10:35)
[2020-06-04] MEDS: FLUTICASONE PROP NASAL SPR 0.05 % (50MCG) 16GM SCH (10:35)
[2020-06-04] MEDS: levETIRAcetam 500 MG TAB PO SCH (10:35)
[2020-06-04] MEDS: busPIRone HCL 10 MG TAB PO SCH (10:35)
[2020-06-04] MEDS: PANTOPRAZOLE 40 MG TAB PO SCH (10:36)
[2020-06-04] MEDS: QUEtiapine FUMARATE 100 MG TAB PO SCH (10:36)
[2020-06-04] MEDS: LISINOPRIL 20 MG TAB PO SCH (10:36)
[2020-06-04] MEDS ORDERED: QUET400T12 PO (12:27)
[2020-06-04 14:39] VITALS: BP 128/66
[2020-06-04 16:38] VITALS: BP 115/64
== END 2020-06-04 16:57 | disposition home or self-care (01) | DRG 139 ==
LOC: EDBD 14:00 → ER 14:00 → TELE 14:01 → TELE-CENTR 06-03 15:20
PROVIDERS: ADMIT Hospitalist; ATTEND Hospitalist
DX: J18.1 Lobar pneumonia, unspecified organism (principal); F20.0 Paranoid schizophrenia; F03.90 Unspecified dementia, unspecified severity, without behavioral disturbance, psychotic disturbance, mood disturbance, and anxiety; N39.0 Urinary tract infection, site not specified; E78.5 Hyperlipidemia, unspecified; F17.210 Nicotine dependence, cigarettes, uncomplicated; F32.9 Major depressive disorder, single episode, unspecified; G40.909 Epilepsy, unspecified, not intractable, without status epilepticus; J98.11 Atelectasis; I10 Essential (primary) hypertension; Z20.828 Contact with and (suspected) exposure to other viral communicable diseases; Z79.899 Other long term (current) drug therapy; Z80.8 Family history of malignant neoplasm of other organs or systems; Z82.49 Family history of ischemic heart disease and other diseases of the circulatory system; Z83.3 Family history of diabetes mellitus; D64.9 Anemia, unspecified; K21.9 Gastro-esophageal reflux disease without esophagitis; F41.9 Anxiety disorder, unspecified; Z88.5 Allergy status to narcotic agent; Z88.2 Allergy status to sulfonamides; Z86.73 Personal history of transient ischemic attack (TIA), and cerebral infarction without residual deficits
CPT/HCPCS: 36415; 71045; 74176; 80053; 80307; 80320; 80329; 81001; 83605; 83735; 85025; 87040; 87426; 96365; 96366; 96367; 96375; G0378; J0696; J2405

== ENCOUNTER 2021-07-05 11:37 | Emergency (ER) | payer MEDICAID ==
[~2021-07-05] VITALS: Ht 152.4 cm; Wt 68.0 kg
[~2021-07-05 11:37] MED LIST changes: -LISI-646 PO; +LISI20TA28 PO; -QUET400T12 PO; +QUET400T13 PO; -SERT-274 PO; +SERT50TA19 PO
[2021-07-05 14:39] VITALS: BP 122/72
[2021-07-05] MEDS ORDERED: ONDANSETRON ODT 4 MG TAB PO ONE (15:45)
[2021-07-05] MEDS ORDERED: HYDROcodone-ACET 5/325MG TAB PO ONE (15:45)
== END 2021-07-05 16:06 | disposition home or self-care (01) ==
LOC: ER 11:37 → EDBD 11:37 → ER 16:06
DX: S39.012A Strain of muscle, fascia and tendon of lower back, initial encounter (principal); M47.816 Spondylosis without myelopathy or radiculopathy, lumbar region; I10 Essential (primary) hypertension; K21.9 Gastro-esophageal reflux disease without esophagitis; E78.5 Hyperlipidemia, unspecified; F17.210 Nicotine dependence, cigarettes, uncomplicated; Z90.49 Acquired absence of other specified parts of digestive tract; Z79.82 Long term (current) use of aspirin; Z79.899 Other long term (current) drug therapy; Z86.73 Personal history of transient ischemic attack (TIA), and cerebral infarction without residual deficits; Z88.5 Allergy status to narcotic agent; Z88.2 Allergy status to sulfonamides; Z88.8 Allergy status to other drugs, medicaments and biological substances; W01.0XXA Fall on same level from slipping, tripping and stumbling without subsequent striking against object, initial encounter; Y93.89 Activity, other specified; Y92.89 Other specified places as the place of occurrence of the external cause; Y99.8 Other external cause status
CPT/HCPCS: 72100; 99283; Q0162; 93005

== ENCOUNTER 2021-12-28 14:44 | Emergency (ER) | payer MEDICAID ==
[~2021-12-28] VITALS: Ht 167.6 cm; Wt 77.1 kg
[2021-12-28] MEDS ORDERED: KETOROLAC TROMETH 60MG/2ML VIAL IM ONE (20:00)
[2021-12-29 12:30] VITALS: BP 151/68
== END 2021-12-29 13:31 | disposition home or self-care (01) ==
LOC: ER 14:44 → EDBD 14:44 → ER 12-29 13:31
DX: S80.02XA Contusion of left knee, initial encounter (principal); S80.01XA Contusion of right knee, initial encounter; S40.022A Contusion of left upper arm, initial encounter; S80.11XA Contusion of right lower leg, initial encounter; I10 Essential (primary) hypertension; K21.9 Gastro-esophageal reflux disease without esophagitis; E78.5 Hyperlipidemia, unspecified; F17.210 Nicotine dependence, cigarettes, uncomplicated; Z90.49 Acquired absence of other specified parts of digestive tract; Z79.82 Long term (current) use of aspirin; Z79.899 Other long term (current) drug therapy; Z88.2 Allergy status to sulfonamides; Z88.8 Allergy status to other drugs, medicaments and biological substances; Y04.2XXA Assault by strike against or bumped into by another person, initial encounter; Y93.89 Activity, other specified; Y92.89 Other specified places as the place of occurrence of the external cause; Y99.8 Other external cause status
CPT/HCPCS: 73562; 96372; 99285; J1885

== ENCOUNTER 2021-12-29 15:50 | Inpatient (IN) | payer MEDICAID ==
[~2021-12-29] VITALS: Ht 167.6 cm; Wt 85.5 kg
[2021-12-29] MEDS ORDERED: SODIUM CHLORIDE 0.9% 1,000 ML IV ONE ×2 (16:30)
[2021-12-29] MEDS ORDERED: ONDANSETRON HCL 4 MG/2 ML VIAL IV ONE (16:30)
[2021-12-29] MEDS ORDERED: cefTRIAXone 1GM/50ML D5W 50 ML IV ONE (16:30)
[2021-12-29] MEDS ORDERED: AZITHROMYCIN 500MG/ 250ML 250 ML IV ONE (17:30)
[2021-12-29 17:37] LABS: Calcium 9.4 mg/dL (8.5-10.1); Potassium 4.6 mmol/L (3.5-5.1)
[2021-12-29 17:39] LABS: Basophils # (auto) 0.2 10 ^3/uL (0-0.2); Basophils % (auto) 1.4 % (0.0-2.0); Eosinophils # (auto) 0.2 10 ^3/uL (0-0.8); Eosinophils % (auto) 1.9 % (0.0-7.0); Hematocrit 39.7 % (36.0-46.0); Hemoglobin 12.9 g/dL (12.2-16.2); Lymphocytes # (auto) 1.2 10 ^3/uL (0.4-5.4); Lymphocytes % (auto) 9.1 % (10.0-50.0); Mean Corpuscular Hemoglobin 27.6 pg (28.0-32.0); Mean Corpuscular Hgb Conc. 32.4 g/dL (32.0-36.0); Mean Corpuscular Volume 85.2 fL (80.0-100.0); Monocytes # (auto) 0.6 10 ^3/uL (0-1.3); Monocytes % (auto) 4.9 % (0.0-12.0); Neutrophils # (auto) 10.8 10 ^3/uL (1.6-8.6); Neutrophils % (auto) 82.7 % (37.0-80.0); Nucleated Red Blood Cells % 0.1 %; Red Blood Cells 4.66 10^6/uL (4.0-5.20); Red Cell Distribution Width 14.9 % (11.8-14.3)
[2021-12-29 17:40] LABS: BUN/Creatinine Ratio 24.6; Bilirubin, Total 0.4 mg/dL (0.2-1.0); Total Protein 8.5 g/dL (6.4-8.2)
[2021-12-29] MEDS ORDERED: HYDROcodone-ACET 5/325MG TAB PO PRN (18:00)
[2021-12-29] MEDS ORDERED: ONDANSETRON HCL 4 MG/2 ML VIAL IV PRN (18:00)
[2021-12-29] MEDS ORDERED: ACETAMINOPHEN 325 MG TAB PO PRN (18:00)
[2021-12-29] MEDS ORDERED: ALENDRONATE SODIUM 35 MG PO SCH (18:15)
[2021-12-29] MEDS ORDERED: hydrALAZINE HCL 20 MG/ML VL IV PRN (18:15)
[2021-12-29] MEDS: GABAPENTIN 300 MG CAP PO SCH (22:00)
[2021-12-29] MEDS: PANTOPRAZOLE 40 MG TAB PO SCH (22:22)
[2021-12-29] MEDS: LISINOPRIL 20 MG TAB PO SCH ×2 (22:25→22:46)
[2021-12-29] MEDS: QUEtiapine FUMARATE 100 MG TAB PO SCH (22:26)
[2021-12-29] MEDS: busPIRone HCL 10 MG TAB PO SCH (22:26)
[2021-12-29] MEDS: levETIRAcetam 500 MG TAB PO SCH (22:27)
[2021-12-29] MEDS: ATORVASTATIN 20 MG TAB PO SCH (22:27)
[2021-12-29] MEDS: ASCORBIC ACID 500 MG TAB PO SCH (22:46)
[2021-12-29] MEDS: lamoTRIgine 100 MG TAB PO SCH (22:47)
[2021-12-29] MEDS: SUCRALFATE 1 GM/10 ML ORAL SUSP PO SCH (22:47)
[2021-12-29] MEDS: FLUTICASONE PROP NASAL SPR 0.05 % (50MCG) 16GM SCH (22:53)
[2021-12-29 22:54] LABS: Urine Bacteria NONE SEEN /hpf (None Seen); Urine Blood Negative /uL (Negative); Urine Hyaline Cast FEW /lpf (0 - 2); Urine Specific Gravity 1.012 (1.001-1.035); Urine WBC 6 /hpf (0 - 5)
[2021-12-30] MEDS: MORPHINE SULFATE INJ 2 MG/ml SYRG IV PRN ×4 (01:18→22:27)
[2021-12-30 02:07] VITALS: BP 102/66
[2021-12-30 05:00] VITALS: BP 116/60
[2021-12-30 05:37] LABS: Basophils # (auto) 0 10 ^3/uL (0-0.2); Basophils % (auto) 0.4 % (0.0-2.0); Eosinophils # (auto) 0.5 10 ^3/uL (0-0.8); Eosinophils % (auto) 5.5 % (0.0-7.0); Hematocrit 31.3 % (36.0-46.0); Hemoglobin 10.7 g/dL (12.2-16.2); Lymphocytes # (auto) 1.4 10 ^3/uL (0.4-5.4); Lymphocytes % (auto) 15.9 % (10.0-50.0); Mean Corpuscular Hemoglobin 28.4 pg (28.0-32.0); Mean Corpuscular Hgb Conc. 34.1 g/dL (32.0-36.0); Mean Corpuscular Volume 83.3 fL (80.0-100.0); Monocytes # (auto) 0.7 10 ^3/uL (0-1.3); Monocytes % (auto) 7.7 % (0.0-12.0); Neutrophils # (auto) 6.2 10 ^3/uL (1.6-8.6); Neutrophils % (auto) 70.5 % (37.0-80.0); Red Blood Cells 3.76 10^6/uL (4.0-5.20); Red Cell Distribution Width 14.7 % (11.8-14.3); White Blood Cell 8.8 10^3/uL (4.4-10.8)
[2021-12-30 05:57] LABS: Potassium 4.3 mmol/L (3.5-5.1)
[2021-12-30 06:07] LABS: Albumin 3.1 g/dL (3.4-5.0); BUN/Creatinine Ratio 25.2; Bilirubin, Total 0.4 mg/dL (0.2-1.0); Calcium 8.1 mg/dL (8.5-10.1); Total Protein 6.5 g/dL (6.4-8.2)
[2021-12-30] MEDS: GABAPENTIN 300 MG CAP PO SCH ×3 (06:17→21:16)
[2021-12-30] MEDS: SUCRALFATE 1 GM/10 ML ORAL SUSP PO SCH ×4 (06:17→21:15)
[2021-12-30] MEDS: cefTRIAXone 1GM/50ML D5W 50 ML IV SCH (08:46)
[2021-12-30 09:00] VITALS: BP 111/54
[2021-12-30] MEDS: LISINOPRIL 20 MG TAB PO SCH ×2 (10:00→21:17)
[2021-12-30] MEDS: busPIRone HCL 10 MG TAB PO SCH ×2 (10:00→21:15)
[2021-12-30] MEDS: PANTOPRAZOLE 40 MG TAB PO SCH ×2 (10:00→21:16)
[2021-12-30] MEDS: lamoTRIgine 100 MG TAB PO SCH ×2 (10:00→21:15)
[2021-12-30] MEDS: CHOLECALCIFEROL (VITD3) 2,000 UNIT CAP/TAB PO SCH (10:00)
[2021-12-30] MEDS: ZINC SULFATE 220mg CAP or TAB PO SCH (10:00)
[2021-12-30] MEDS: FERROUS SULFATE 325mg EC TAB PO SCH (10:00)
[2021-12-30] MEDS: AZITHROMYCIN 500MG/ 250ML 250 ML IV SCH (10:00)
[2021-12-30] MEDS: ASPirin-EC 81 mg tab PO SCH (10:00)
[2021-12-30] MEDS: FLUTICASONE PROP NASAL SPR 0.05 % (50MCG) 16GM SCH ×2 (10:00→21:15)
[2021-12-30] MEDS: SERTRALINE HCL 50 MG TAB PO SCH (10:00)
[2021-12-30] MEDS: ASCORBIC ACID 500 MG TAB PO SCH ×2 (10:00→21:16)
[2021-12-30] MEDS: MULTIPLE VITAMIN TAB PO SCH (10:00)
[2021-12-30] MEDS: QUEtiapine FUMARATE 100 MG TAB PO SCH ×2 (10:00→21:16)
[2021-12-30] MEDS: ENOXAPARIN SOD 40 MG/0.4 ML SYRINGE SC SCH (10:00)
[2021-12-30] MEDS: levETIRAcetam 500 MG TAB PO SCH ×2 (10:00→21:15)
[2021-12-30] MEDS: FUROSEMIDE 20 MG TAB PO SCH (10:00)
[2021-12-30 12:58] VITALS: BP 106/85
[2021-12-30 17:00] VITALS: BP 111/65
[2021-12-30] MEDS: ATORVASTATIN 20 MG TAB PO SCH (21:15)
[2021-12-30 22:00] VITALS: BP 117/71
[2021-12-30] MEDS ORDERED: DOCUSATE SOD 100 MG CAP PO PRN (22:45)
[2021-12-31] VITALS (7 sets, daily range): BP systolic 107–137; BP diastolic 55–86
[2021-12-31] MEDS: SUCRALFATE 1 GM/10 ML ORAL SUSP PO SCH ×4 (05:08→21:43)
[2021-12-31] MEDS: GABAPENTIN 300 MG CAP PO SCH ×3 (05:08→21:43)
[2021-12-31] MEDS: MORPHINE SULFATE INJ 2 MG/ml SYRG IV PRN ×2 (06:14→13:16)
[2021-12-31] MEDS: cefTRIAXone 1GM/50ML D5W 50 ML IV SCH (08:31)
[2021-12-31] MEDS: FLUTICASONE PROP NASAL SPR 0.05 % (50MCG) 16GM SCH ×2 (09:40→21:42)
[2021-12-31] MEDS: ENOXAPARIN SOD 40 MG/0.4 ML SYRINGE SC SCH (09:41)
[2021-12-31] MEDS: SERTRALINE HCL 50 MG TAB PO SCH (09:42)
[2021-12-31] MEDS: lamoTRIgine 100 MG TAB PO SCH ×2 (09:42→21:43)
[2021-12-31] MEDS: ASPirin-EC 81 mg tab PO SCH (09:42)
[2021-12-31] MEDS: CHOLECALCIFEROL (VITD3) 2,000 UNIT CAP/TAB PO SCH (09:43)
[2021-12-31] MEDS: FERROUS SULFATE 325mg EC TAB PO SCH (09:43)
[2021-12-31] MEDS: ASCORBIC ACID 500 MG TAB PO SCH ×2 (09:43→21:44)
[2021-12-31] MEDS: MULTIPLE VITAMIN TAB PO SCH (09:43)
[2021-12-31] MEDS: ZINC SULFATE 220mg CAP or TAB PO SCH (09:43)
[2021-12-31] MEDS: busPIRone HCL 10 MG TAB PO SCH ×2 (09:44→21:42)
[2021-12-31] MEDS: QUEtiapine FUMARATE 100 MG TAB PO SCH ×2 (09:44→21:44)
[2021-12-31] MEDS: PANTOPRAZOLE 40 MG TAB PO SCH ×2 (09:44→21:43)
[2021-12-31] MEDS: LISINOPRIL 20 MG TAB PO SCH ×2 (09:46→21:44)
[2021-12-31] MEDS: levETIRAcetam 500 MG TAB PO SCH ×2 (09:47→21:43)
[2021-12-31] MEDS: AZITHROMYCIN 500MG/ 250ML 250 ML IV SCH (09:47)
[2021-12-31] MEDS: FUROSEMIDE 20 MG TAB PO SCH (09:48)
[2021-12-31] MEDS ORDERED: DOXY-332 PO (10:59)
[2021-12-31] MEDS: ATORVASTATIN 20 MG TAB PO SCH (21:43)
[2022-01-01 05:22] VITALS: BP 134/74
[2022-01-01 05:23] VITALS: BP 121/68
[2022-01-01] MEDS: SUCRALFATE 1 GM/10 ML ORAL SUSP PO SCH (05:40)
[2022-01-01] MEDS: GABAPENTIN 300 MG CAP PO SCH (05:40)
[2022-01-01 09:00] VITALS: BP 125/77
[2022-01-01] MEDS: cefTRIAXone 1GM/50ML D5W 50 ML IV SCH (09:00)
[2022-01-01] MEDS: AZITHROMYCIN 500MG/ 250ML 250 ML IV SCH (10:00)
[2022-01-01] MEDS: SERTRALINE HCL 50 MG TAB PO SCH (10:07)
[2022-01-01] MEDS: lamoTRIgine 100 MG TAB PO SCH (10:07)
[2022-01-01] MEDS: ASCORBIC ACID 500 MG TAB PO SCH (10:07)
[2022-01-01] MEDS: FERROUS SULFATE 325mg EC TAB PO SCH (10:07)
[2022-01-01] MEDS: PANTOPRAZOLE 40 MG TAB PO SCH (10:07)
[2022-01-01] MEDS: ASPirin-EC 81 mg tab PO SCH (10:08)
[2022-01-01] MEDS: LISINOPRIL 20 MG TAB PO SCH (10:08)
[2022-01-01] MEDS: QUEtiapine FUMARATE 100 MG TAB PO SCH (10:08)
[2022-01-01] MEDS: CHOLECALCIFEROL (VITD3) 2,000 UNIT CAP/TAB PO SCH (10:08)
[2022-01-01] MEDS: ENOXAPARIN SOD 40 MG/0.4 ML SYRINGE SC SCH (10:09)
[2022-01-01] MEDS: ZINC SULFATE 220mg CAP or TAB PO SCH (10:09)
[2022-01-01] MEDS: busPIRone HCL 10 MG TAB PO SCH (10:09)
[2022-01-01] MEDS: MULTIPLE VITAMIN TAB PO SCH (10:09)
[2022-01-01] MEDS: levETIRAcetam 500 MG TAB PO SCH (10:10)
[2022-01-01] MEDS: FLUTICASONE PROP NASAL SPR 0.05 % (50MCG) 16GM SCH (10:10)
[2022-01-01] MEDS: FUROSEMIDE 20 MG TAB PO SCH (10:10)
[2022-01-01] MEDS ORDERED: QUET400T PO (10:18)
[2022-01-01] MEDS ORDERED: BUSP15TA60 PO (10:18)
[2022-01-01] MEDS ORDERED: SERT-160 PO (10:18)
[2022-01-01] MEDS ORDERED: KEP500T PO (10:18)
== END 2022-01-01 10:50 | disposition home or self-care (01) | DRG 139 ==
LOC: ER 15:50 → OVERFLOW 17:57 → EAST 23:35
PROVIDERS: ADMIT Internal Medicine; ATTEND Internal Medicine
DX: J18.9 Pneumonia, unspecified organism (principal); J96.01 Acute respiratory failure with hypoxia; E78.5 Hyperlipidemia, unspecified; F17.210 Nicotine dependence, cigarettes, uncomplicated; F20.9 Schizophrenia, unspecified; F31.9 Bipolar disorder, unspecified; F41.9 Anxiety disorder, unspecified; K21.9 Gastro-esophageal reflux disease without esophagitis; R73.9 Hyperglycemia, unspecified; I10 Essential (primary) hypertension; J98.11 Atelectasis; Z20.822 Contact with and (suspected) exposure to COVID-19; Z28.310 Unvaccinated for COVID-19; Z80.8 Family history of malignant neoplasm of other organs or systems; Z82.49 Family history of ischemic heart disease and other diseases of the circulatory system; Z83.3 Family history of diabetes mellitus; Z86.73 Personal history of transient ischemic attack (TIA), and cerebral infarction without residual deficits; Z88.5 Allergy status to narcotic agent; Z88.2 Allergy status to sulfonamides; Z90.49 Acquired absence of other specified parts of digestive tract
CPT/HCPCS: 36415; 71045; 74176; 80053; 81001; 83036; 85025; 96361; 96365; G0378; J0696; J2405

== ENCOUNTER 2022-03-30 21:03 | Emergency (ER) | payer MEDICAID ==
[~2022-03-30] VITALS: Ht 167.6 cm; Wt 75.0 kg
[~2022-03-30 21:03] MED LIST changes: +DOXY-332 PO; +QUET400T PO; +SERT-160 PO
[2022-03-30 23:38] LABS: Basophils # (auto) 0.1 10 ^3/uL (0-0.2); Basophils % (auto) 0.3 % (0.0-2.0); Eosinophils # (auto) 0 10 ^3/uL (0-0.8); Eosinophils % (auto) 0.2 % (0.0-7.0); Lymphocytes # (auto) 1.5 10 ^3/uL (0.4-5.4); Lymphocytes % (auto) 7.7 % (10.0-50.0); Mean Corpuscular Hemoglobin 28.3 pg (28.0-32.0); Mean Corpuscular Hgb Conc. 32.3 g/dL (32.0-36.0); Mean Corpuscular Volume 87.6 fL (80.0-100.0); Monocytes # (auto) 0.6 10 ^3/uL (0-1.3); Monocytes % (auto) 2.9 % (0.0-12.0); Neutrophils # (auto) 17.3 10 ^3/uL (1.6-8.6); Neutrophils % (auto) 88.9 % (37.0-80.0); Red Blood Cells 4.23 10^6/uL (4.0-5.20); Red Cell Distribution Width 17.1 % (11.8-14.3); White Blood Cell 19.5 10^3/uL (4.4-10.8)
[2022-03-30 23:51] LABS: Calcium 9.2 mg/dL (8.5-10.1); Potassium 4.3 mmol/L (3.5-5.1)
[2022-03-30 23:55] LABS: BUN/Creatinine Ratio 18.5; Bilirubin, Total 0.6 mg/dL (0.2-1.0); Total Protein 6.8 g/dL (6.4-8.2)
[2022-03-31 01:10] LABS: Urine Bacteria NONE SEEN /hpf (None Seen); Urine Blood TRACE /uL (Negative); Urine Hyaline Cast FEW /lpf (0 - 2); Urine Specific Gravity 1.021 (1.001-1.035); Urine WBC 5 /hpf (0 - 5)
[2022-03-31] MEDS ORDERED: KETOROLAC TROMETH 60MG/2ML VIAL IM ONE (03:15)
[2022-03-31] MEDS ORDERED: NITR-87 PO (08:19)
[2022-03-31] MEDS ORDERED: cefTRIAXone SOD 1,000 MG VL IM ONE (08:30)
[2022-03-31] MEDS ORDERED: cefTRIAXone 1GM/50ML D5W 50 ML IV ONE (08:45)
[2022-03-31 10:45] VITALS: BP 142/75
== END 2022-03-31 08:20 | disposition home or self-care (01) ==
LOC: EDBD 21:03 → ER 21:03
DX: R07.89 Other chest pain (principal); N39.0 Urinary tract infection, site not specified; K21.9 Gastro-esophageal reflux disease without esophagitis; E78.5 Hyperlipidemia, unspecified; I10 Essential (primary) hypertension; F17.210 Nicotine dependence, cigarettes, uncomplicated; F12.10 Cannabis abuse, uncomplicated; Z90.49 Acquired absence of other specified parts of digestive tract; Z86.73 Personal history of transient ischemic attack (TIA), and cerebral infarction without residual deficits; Z88.2 Allergy status to sulfonamides; Z88.8 Allergy status to other drugs, medicaments and biological substances; Z88.6 Allergy status to analgesic agent
CPT/HCPCS: 36415; 80053; 81001; 83880; 84484; 85025; 93005; 96365; 96372; 99285; J0696; J1885

== ENCOUNTER 2022-07-31 08:37 | Emergency (ER) | payer MEDICAID ==
[~2022-07-31] VITALS: Ht 170.2 cm; Wt 81.2 kg
[~2022-07-31 08:37] MED LIST changes: +NITR-87 PO
[2022-07-31 09:01] VITALS: BP 128/63
[2022-07-31] MEDS ORDERED: KETOROLAC TROMETH 60MG/2ML VIAL IM ONE (09:15)
[2022-07-31] MEDS ORDERED: HYDROcodone-ACET 10/325MG TAB PO ONE (10:15)
[2022-07-31] MEDS ORDERED: HYDR-4902 PO (10:25)
[2022-07-31] MEDS ORDERED: IBUP600T27 PO (10:25)
== END 2022-07-31 10:26 | disposition home or self-care (01) ==
LOC: ER 08:37
DX: S63.602A Unspecified sprain of left thumb, initial encounter (principal); S70.01XA Contusion of right hip, initial encounter; S70.11XA Contusion of right thigh, initial encounter; I10 Essential (primary) hypertension; E78.5 Hyperlipidemia, unspecified; K21.9 Gastro-esophageal reflux disease without esophagitis; F17.210 Nicotine dependence, cigarettes, uncomplicated; Z86.73 Personal history of transient ischemic attack (TIA), and cerebral infarction without residual deficits; Z90.49 Acquired absence of other specified parts of digestive tract; Z79.82 Long term (current) use of aspirin; Z79.899 Other long term (current) drug therapy; Z88.5 Allergy status to narcotic agent; Z88.2 Allergy status to sulfonamides; Z88.8 Allergy status to other drugs, medicaments and biological substances; W01.0XXA Fall on same level from slipping, tripping and stumbling without subsequent striking against object, initial encounter; Y93.89 Activity, other specified; Y92.89 Other specified places as the place of occurrence of the external cause; Y99.8 Other external cause status
CPT/HCPCS: 72220; 73130; 73502; 96372; 99284; J1885

== ENCOUNTER 2022-12-24 10:44 | Emergency (ER) | payer MEDICAID ==
[~2022-12-24] VITALS: Ht 170.2 cm; Wt 91.0 kg
[~2022-12-24 10:44] MED LIST changes: -DOXY-332 PO; +DOXY-448 PO; -FERR-20 PO; +FERR325T24 PO; -GABA250S2 PO; +GABA250S7 PO; +HYDR-4902 PO; +IBUP-1454 PO; -LISI20TA28 PO; +LISI20TA56 PO; +SERT-206 PO; -SERT50TA19 PO; -SUCR1SUS10 PO; +SUCR1SUS26 PO
[2022-12-24 11:35] LABS: Basophils # (auto) 0.1 10 ^3/uL (0-0.2); Basophils % (auto) 0.8 % (0.0-2.0); Eosinophils # (auto) 0.3 10 ^3/uL (0-0.8); Hematocrit 42.6 % (36.0-46.0); Hemoglobin 14.2 g/dL (12.2-16.2); Lymphocytes # (auto) 1.7 10 ^3/uL (0.4-5.4); Lymphocytes % (auto) 16.8 % (10.0-50.0); Mean Corpuscular Hemoglobin 29.2 pg (28.0-32.0); Mean Corpuscular Hgb Conc. 33.3 g/dL (32.0-36.0); Mean Corpuscular Volume 87.8 fL (80.0-100.0); Monocytes # (auto) 0.5 10 ^3/uL (0-1.3); Monocytes % (auto) 4.9 % (0.0-12.0); Neutrophils # (auto) 7.4 10 ^3/uL (1.6-8.6); Neutrophils % (auto) 74.5 % (37.0-80.0); Red Blood Cells 4.85 10^6/uL (4.0-5.20); Red Cell Distribution Width 14.6 % (11.8-14.3); White Blood Cell 9.9 10^3/uL (4.4-10.8)
[2022-12-24 11:56] LABS: Urine Bacteria NONE SEEN /hpf (None Seen); Urine Blood Negative /uL (Negative); Urine Specific Gravity 1.007 (1.001-1.035); Urine WBC <1 /hpf (0 - 5)
[2022-12-24 12:03] LABS: Calcium 9.6 mg/dL (8.5-10.1)
[2022-12-24 12:04] LABS: BUN/Creatinine Ratio 20.8 (10.0-20.0)
[2022-12-24 12:07] LABS: Bilirubin, Total 0.3 mg/dL (0.2-1.0); Total Protein 7.9 g/dL (6.4-8.2)
[2022-12-24] MEDS ORDERED: ACETAMINOPHEN 325 MG TAB PO ONE (13:30)
[2022-12-24] MEDS ORDERED: ONDANSETRON HCL 4 MG/2 ML VIAL IM ONE (15:30)
[2022-12-24] MEDS ORDERED: MORPHINE SULFATE INJ 2 MG/ml SYRG IM ONE (15:30)
[2022-12-24 16:14] VITALS: BP 137/78
[2022-12-24] MEDS ORDERED: HYDR-4902 PO ×3 (16:17→16:31)
== END 2022-12-24 16:20 | disposition home or self-care (01) ==
LOC: EDBD 10:44 → ER 10:44
DX: S70.01XA Contusion of right hip, initial encounter (principal); S70.11XA Contusion of right thigh, initial encounter; F41.9 Anxiety disorder, unspecified; F32.9 Major depressive disorder, single episode, unspecified; K21.9 Gastro-esophageal reflux disease without esophagitis; E78.5 Hyperlipidemia, unspecified; F20.9 Schizophrenia, unspecified; I10 Essential (primary) hypertension; F17.210 Nicotine dependence, cigarettes, uncomplicated; F12.90 Cannabis use, unspecified, uncomplicated; Z98.890 Other specified postprocedural states; Z90.49 Acquired absence of other specified parts of digestive tract; Z86.73 Personal history of transient ischemic attack (TIA), and cerebral infarction without residual deficits; Z88.2 Allergy status to sulfonamides; Z88.5 Allergy status to narcotic agent; Z88.8 Allergy status to other drugs, medicaments and biological substances; Z79.899 Other long term (current) drug therapy; Z79.82 Long term (current) use of aspirin; W18.39XA Other fall on same level, initial encounter; Y93.89 Activity, other specified; Y92.89 Other specified places as the place of occurrence of the external cause; Y99.8 Other external cause status
CPT/HCPCS: 36415; 72192; 80053; 81001; 85025; 96372; 99285; J2270; J2405

== ENCOUNTER 2023-02-17 15:53 | Emergency (ER) | payer MEDICAID ==
[~2023-02-17] VITALS: Ht 167.6 cm; Wt 78.8 kg
[2023-02-17] MEDS ORDERED: ONDANSETRON ODT 4 MG TAB PO ONE (16:15)
[2023-02-17] MEDS ORDERED: HYDROcodone-ACET 10/325MG TAB PO ONE (16:15)
[2023-02-17 17:12] LABS: Basophils # (auto) 0.1 10 ^3/uL (0-0.2); Basophils % (auto) 0.8 % (0.0-2.0); Eosinophils # (auto) 0.3 10 ^3/uL (0-0.8); Eosinophils % (auto) 2.6 % (0.0-7.0); Hematocrit 37.9 % (36.0-46.0); Hemoglobin 12.5 g/dL (12.2-16.2); Lymphocytes # (auto) 1.5 10 ^3/uL (0.4-5.4); Mean Corpuscular Hemoglobin 28.7 pg (28.0-32.0); Mean Corpuscular Hgb Conc. 32.9 g/dL (32.0-36.0); Mean Corpuscular Volume 87.3 fL (80.0-100.0); Monocytes # (auto) 0.7 10 ^3/uL (0-1.3); Monocytes % (auto) 5.7 % (0.0-12.0); Neutrophils # (auto) 9.7 10 ^3/uL (1.6-8.6); Neutrophils % (auto) 78.9 % (37.0-80.0); Nucleated Red Blood Cells % 0.1 %; Red Blood Cells 4.34 10^6/uL (4.0-5.20); Red Cell Distribution Width 14.1 % (11.8-14.3); White Blood Cell 12.2 10^3/uL (4.4-10.8)
[2023-02-17 17:23] LABS: Calcium 9.1 mg/dL (8.5-10.1); Magnesium 2.4 mg/dL (1.6-2.6); Potassium 4.5 mmol/L (3.5-5.1)
[2023-02-17 17:26] LABS: BUN/Creatinine Ratio 22.5 (10.0-20.0); Bilirubin, Total 0.4 mg/dL (0.2-1.0); Total Protein 7.2 g/dL (6.4-8.2)
[2023-02-17] MEDS ORDERED: HYDROmorphone HCL 2 MG/ML VL/or syr IM ONE ×2 (17:45→22:30)
[2023-02-17] MEDS ORDERED: METOCLOPRAMIDE HCL 10 MG TAB PO ONE (17:45)
[2023-02-17] MEDS ORDERED: IOHEXOL 300 MG/ML 100ML BOTTLE IJ ONE (18:14)
[2023-02-17 19:38] VITALS: BP 128/62; PULSE 66; RESP 18; TEMP 97.8; O2SAT 100
[2023-02-17 19:44] LABS: Urine Bacteria NONE SEEN /hpf (None Seen); Urine Blood Negative /uL (Negative); Urine Hyaline Cast FEW /lpf (0 - 2); Urine Specific Gravity 1.041 (1.001-1.035); Urine WBC 2 /hpf (0 - 5)
== END 2023-02-17 22:43 | disposition home or self-care (01) ==
LOC: ER 15:53
DX: E27.9 Disorder of adrenal gland, unspecified (principal); N17.9 Acute kidney failure, unspecified; R10.84 Generalized abdominal pain; I10 Essential (primary) hypertension; E78.5 Hyperlipidemia, unspecified; K21.9 Gastro-esophageal reflux disease without esophagitis; F17.210 Nicotine dependence, cigarettes, uncomplicated; Z86.73 Personal history of transient ischemic attack (TIA), and cerebral infarction without residual deficits; Z90.49 Acquired absence of other specified parts of digestive tract; Z79.82 Long term (current) use of aspirin; Z79.899 Other long term (current) drug therapy; Z88.5 Allergy status to narcotic agent; Z88.2 Allergy status to sulfonamides; Z88.8 Allergy status to other drugs, medicaments and biological substances
CPT/HCPCS: 36415; 74178; 80053; 81001; 83690; 83735; 84484; 85025; 93005; 96372; 99285; J1170; J8597; Q0162; Q9967

== ENCOUNTER 2023-05-16 12:58 | Emergency (ER) | payer MEDICAID ==
[~2023-05-16] VITALS: Ht 167.6 cm; Wt 83.7 kg
[2023-05-16 13:53] LABS: Urine Bacteria NONE SEEN /hpf (None Seen); Urine Blood Negative /uL (Negative); Urine Clarity Clear (Clear); Urine Protein, UAD Negative (Negative); Urine Specific Gravity 1.009 (1.001-1.035); Urine Urobilinogen Normal (Negative); Urine WBC 10 /hpf (0 - 5)
[2023-05-16 13:54] LABS: Urine Color Straw (Yellow)
[2023-05-16 13:58] LABS: Basophils # (auto) 0.1 10 ^3/uL (0-0.2); Basophils % (auto) 0.6 % (0.0-2.0); Eosinophils # (auto) 0.7 10 ^3/uL (0-0.8); Eosinophils % (auto) 6.6 % (0.0-7.0); Hematocrit 42.4 % (36.0-46.0); Hemoglobin 14.1 g/dL (12.2-16.2); Lymphocytes # (auto) 2.1 10 ^3/uL (0.4-5.4); Lymphocytes % (auto) 18.8 % (10.0-50.0); Mean Corpuscular Hemoglobin 29.4 pg (28.0-32.0); Mean Corpuscular Hgb Conc. 33.2 g/dL (32.0-36.0); Mean Corpuscular Volume 88.5 fL (80.0-100.0); Monocytes # (auto) 0.8 10 ^3/uL (0-1.3); Monocytes % (auto) 7.6 % (0.0-12.0); Neutrophils # (auto) 7.3 10 ^3/uL (1.6-8.6); Neutrophils % (auto) 66.4 % (37.0-80.0); Red Blood Cells 4.79 10^6/uL (4.0-5.20); Red Cell Distribution Width 14.7 % (11.8-14.3)
[2023-05-16 14:09] LABS: Alanine Aminotransferase 17 U/L (7-40); Albumin 4.9 g/dL (3.2-4.8); Alkaline Phosphatase 145 U/L (46-116); Anion Gap 8 (5-15); Aspartate Aminotransferase 25 U/L (13-40); BUN/Creatinine Ratio 28.4 (10.0-20.0); Blood Urea Nitrogen 33 mg/dL (9-23); Calcium 10.1 mg/dL (8.5-10.1); Carbon Dioxide 24 mmol/L (20-30); Chloride 108 mmol/L (98-107); Glucose 101 mg/dL (74-106); Potassium 4.5 mmol/L (3.5-5.1); Sodium 140 mmol/L (136-145)
[2023-05-16 14:10] LABS: Bilirubin, Total 0.3 mg/dL (0.2-1.0); Total Protein 7.4 g/dL (5.7-8.2)
[2023-05-16] MEDS ORDERED: NITR-87 PO (16:17)
[2023-05-16 16:29] VITALS: BP 133/75; PULSE 60; RESP 18; TEMP 97; O2SAT 95
== END 2023-05-16 16:31 | disposition home or self-care (01) ==
LOC: ER 12:58
DX: Z00.00 Encounter for general adult medical examination without abnormal findings (principal); I10 Essential (primary) hypertension; F41.9 Anxiety disorder, unspecified; F32.9 Major depressive disorder, single episode, unspecified; K21.9 Gastro-esophageal reflux disease without esophagitis; E78.5 Hyperlipidemia, unspecified; F20.9 Schizophrenia, unspecified; F17.210 Nicotine dependence, cigarettes, uncomplicated; F15.90 Other stimulant use, unspecified, uncomplicated; Z86.73 Personal history of transient ischemic attack (TIA), and cerebral infarction without residual deficits; Z90.49 Acquired absence of other specified parts of digestive tract; Z98.890 Other specified postprocedural states; Z88.8 Allergy status to other drugs, medicaments and biological substances; Z79.1 Long term (current) use of non-steroidal anti-inflammatories (NSAID); Z79.899 Other long term (current) drug therapy
CPT/HCPCS: 36415; 80053; 81001; 85025; 87086

== ENCOUNTER 2023-12-27 11:54 | Emergency (ER) | payer MEDICAID ==
[~2023-12-27] VITALS: Ht 167.6 cm; Wt 91.7 kg
[2023-12-27] MEDS ORDERED: AMOX875T3 PO (13:11)
[2023-12-27] MEDS ORDERED: PRED20TA2 PO (13:11)
[2023-12-27 13:31] VITALS: BP 100/60; PULSE 81; RESP 17; TEMP 98.7; O2SAT 95
== END 2023-12-27 13:31 | disposition home or self-care (01) ==
LOC: ER 11:54
DX: J01.00 Acute maxillary sinusitis, unspecified (principal); I10 Essential (primary) hypertension; E78.5 Hyperlipidemia, unspecified; K21.9 Gastro-esophageal reflux disease without esophagitis; F41.9 Anxiety disorder, unspecified; F32.9 Major depressive disorder, single episode, unspecified; F20.9 Schizophrenia, unspecified; F17.210 Nicotine dependence, cigarettes, uncomplicated; F15.90 Other stimulant use, unspecified, uncomplicated; Z98.890 Other specified postprocedural states
CPT/HCPCS: 71046